=== PATIENT | female | born 1945 | race Hispanic/Latino ===

== ENCOUNTER 2017-09-02 11:22 | Inpatient (IN) | payer OTHER ==
[~2017-09-02] VITALS: Ht 152.4 cm; Wt 81.6 kg
[~2017-09-02 11:22] MED LIST: VICODIN5-300 PO
[2017-09-02 12:14] LABS: ABSOLUTE BASOPHIL COUNT 0 /CUMM (0.0-0.2); ABSOLUTE EOSINOPHIL COUNT 0 /CUMM (0.0-0.7); ABSOLUTE GRANULOCYTE CT 11.9 /CUMM (1.4-6.5); ABSOLUTE LYMPH COUNT 0.6 /CUMM (1.2-3.4); ABSOLUTE MONOCYTE COUNT 0.2 /CUMM (0.10-0.60); BASOPHIL % 0.1 % (0.0-2.0); EOSINOPHIL % 0.1 % (0-5); HEMATOCRIT 29.9 % (37-47); MEAN CORPUSCULAR HGB 23.8 PG (27.0-31.0); MEAN CORPUSCULAR HGB CONC 32.2 G/DL (33.0-37.0); MEAN CORPUSCULAR VOLUME 74.1 FL (81.0-99.0); MEAN PLATELET VOLUME 9.2 FL (7.4-10.4); PLATELET COUNT 211 /CUMM (130-400); RED BLOOD CELL CT 4.04 /CUMM (4.20-5.40); WHITE BLOOD CELL COUNT 12.8 /CUMM (4.8-10.8)
[2017-09-02 12:24] LABS: PT 13.3 SEC (9.4-12.5)
[2017-09-02] MEDS ORDERED: LEVOTHYROXINE25 MCG PO (12:48)
[2017-09-02] MEDS ORDERED: OMEPRAZOLE40 M1 PO (12:48)
[2017-09-02] MEDS ORDERED: GLIPIZIDE5 M2 PO (12:48)
[2017-09-02] MEDS ORDERED: HYDROCHLOROTHIA25 M1 PO (12:48)
[2017-09-02] MEDS ORDERED: MONTELUKAST SOD10 M1 PO (12:49)
[2017-09-02] MEDS ORDERED: JANUMET 50-1,01 EACH PO (12:49)
[2017-09-02] MEDS ORDERED: LOSARTAN POTAS100 M1 PO (12:49)
[2017-09-02] MEDS ORDERED: [UNRECOGNIZED DRUG - OTHER] PO (12:50)
[2017-09-02] MEDS ORDERED: GABAPENTIN300 M2 PO (12:50)
[2017-09-02] MEDS ORDERED: MELOXICAM15 M1 PO (12:51)
--- NOTE | 2017-09-02 12:53 | ED GENERAL ADULT ---
History of Present Illness General Chief Complaint: Chest Pain Stated Complaint: CP YESTERDAY LFT SHOULDER PAIN WEAKNESS/ABD Source: patient, family (DAUGHTER) Exam Limitations: language barrier (DAUGHTER TRANSLATES) Vital Signs & Intake/Output Vital Signs & Intake/Output Vital Signs Date Time Temp Pulse Resp B/P B/P Pulse O2 O2 Flow FiO2 Mean Ox Delivery Rate 09/03 1033 100.2 09/03 1032 100.2 09/03 0609 99.3 89 20 103/57 95 Room Air 09/03 0003 98.7 99 18 102/51 95 Room Air 09/02 2154 103.1 09/02 2134 94 09/02 2100 103.2 123 20 152/67 98 Room Air 09/02 1825 98.7 76 18 119/60 98 Room Air 09/02 1820 71 16 117/71 100 Room Air 09/02 1508 99.0 82 20 109/52 96 Room Air 09/02 1233 94 09/02 1228 100.0 102 120/71 ED Intake and Output 09/03 0000 09/02 1200 Intake Total 0 Output Total Balance 0 Intake, Oral 0 Patient 180 lb Weight Weight Estimated Measurement Method Allergies Coded Allergies: NO KNOWN ALLERGIES (01/02/17) Reconcile Medications Beta-Carotene (Lumitene) 30 MG CAPSULE 15 MG PO DAILY SUPPLEMENT (Reported) Gabapentin 300 MG CAPSULE 1 CAP PO TID UNKNOWN (Reported) Glipizide 5 MG TABLET 1 TAB PO DAILY DM (Reported) Hydrochlorothiazide 25 MG TABLET 1 TAB PO DAILY WATER RETENTION (Reported) Levothyroxine Sodium 25 MCG TABLET 1 TAB PO DAILY AC thyroid (Reported) Losartan Potassium 100 MG TABLET 1 TAB PO DAILY HEART (Reported) Meloxicam 15 MG TABLET 1 TAB PO DAILY PAIN (Reported) Montelukast Sodium 10 MG TABLET 1 TAB PO DAILY ALLERGIES (Reported) Omeprazole 40 MG CAPSULE.DR 1 CAP PO DAILY GI (Reported) Sitagliptin Phos/Metformin HCl (Janumet 50-1,000 MG Tablet) 50 MG-1,000 MG TABLET 1 TAB PO BID DIABETES (Reported) Triage Note: PT BIBA FROM HOME FOR LEFT SHOULDER PAIN. PT HAD CHEST PAIN LAST NIGHT, BUT NOT TODAY. ALSO C/O GENERALIZED WEAKNESS. PT WAS IN HER BEDROOM TODAY AND WAS LOWERED TO FLOOR BY DUE TO WEAKNESS. PER FAMILY PT HAD STENT PLACED IN HER LEG A FEW WEEKS AGO "FOR CIRCULATION". SAW VASCULAR DOCTOR YESTERDAY FOR F/U AND EVERYTHING WAS OK. Triage Nurses Notes Reviewed? yes Onset: Abrupt Duration: day(s): (2) Timing: single episode today Injury Environment: home Severity: moderate, severe Severity Numbers: 6 No Modifying Factors: none LMP (ages 10-50): post menopausal : No Patient currently breastfeeds: No HPI: 72-year-old female past medical history of hypertension, hyperlipidemia, diabetes presents for evaluation of fever, chest pain and abdominal pain. Symptoms started yesterday and have been intermittent. The pain is located in the right upper [place] and center of her chST and does not radiate. She also reports pain in her lower abdomen and right flank. This pain started yesterday and has been intermittent coming and going. Currently is very mild. She describes the pain as sharp and rates it as a 3 out of 10. She never had this before. She took Advil earlier today with mild improvement. She denies shortness of breath, coughing, hemoptysis, urinary symptoms, nausea, vomiting, diarrhea. No recent surgery recent trauma. No history of blood clots. She does not smoke. (Cain Purcell) Past History Travel History Traveled to [place] past 21 day No Medical History Any Pertinent Medical History? see below for history Cardiovascular: hypertension, hyperlipidemia Respiratory: asthma Gastrointestinal: GERD Endocrine: diabetes, hypothyroidism Surgical History Surgical History: non-contributory Psychosocial History What is your primary language Pashto Tobacco Use: Never used ETOH Use: denies use Illicit Drug Use: denies illicit drug use Family History Hx Contributory? No (Cain Purcell) Review of Systems Review of Systems Constitutional: Reports: fever. EENTM: Reports: no symptoms. Respiratory: Reports: no symptoms. Cardiovascular: Reports: see HPI, chest pain. GI: Reports: abdominal pain. Genitourinary: Reports: no symptoms. Musculoskeletal: Reports: see HPI, back pain. Skin: Reports: no symptoms. Neurological/Psychological: Reports: no symptoms. Hematologic/Endocrine: Reports: no symptoms. Immunologic/Allergic: Reports: no symptoms. All Other Systems: Reviewed and Negative (Cain Purcell) Physical Exam Physical Exam General Appearance: well developed/nourished, no apparent distress, alert, awake Head: atraumatic, normal appearance Eyes: Bilateral: normal appearance, PERRL, EOMI. Ears, Nose, Throat: normal pharynx, normal ENT inspection, hearing grossly normal Neck: normal inspection, supple, full range of motion Respiratory: normal breath sounds, chest non-tender, no respiratory distress, lungs clear Cardiovascular: regular rate/rhythm, normal peripheral pulses Peripheral Pulses: 2+ radial (R), 2+ radial (L) Gastrointestinal: normal bowel sounds, soft, no organomegaly, tenderness ( SUPRAPUBIC, RUQ) Back: normal inspection, normal range of motion, CVA tenderness (R) Extremities: normal inspection, normal range of motion, no edema Neurologic/Psych: no motor/sensory deficits, awake, alert, oriented x 3 Skin: intact, normal color, warm/dry Lymphatic: no anterior cervical christa Core Measures ACS in differential dx? No CVA/TIA Diagnosis: No Sepsis Present: No Sepsis Focused Exam Completed? No (Dennis HODGSON,Cain) Progress Differential Diagnoses I considered the following diagnoses in my evaluation of the patient: [Acute coronary syndrome, pneumonia, influenza, UTI, sepsis, kidney stone, aortic dissection, MSK PAIN ] Plan of Care: Orders Procedure Date/time Status Regular Diet 09/03 B Active Vital Signs 09/03 0750 Active Teach/Educate 09/03 0750 Active Pain Treatment and Response 09/03 0750 Active Nutritional Intake, Monitor 09/03 0750 Active Isolation 09/03 0750 Active Intake & Output 09/03 0750 Active Patient Care Conference 09/03 0750 Active Activity/Ambulation 09/03 0750 Active CBC WITHOUT DIFFERENTIAL 09/03 0600 Complete BASIC ELECTROLYTES PLUS BUN&CR 09/03 0600 Complete Lab Add-on Test 09/03 UNK Active PHARMACY COMMUNICATION FORM 09/03 UNK Active TROPONIN LEVEL 09/02 2200 Complete EKG 09/02 2200 Active SERUM OSMOLALITY 09/02 1846 Active Pathway - chart 09/02 1816 Active Pathway - chart 09/02 1814 Active House Staff 09/02 1814 Active Patient Data 09/02 1814 Active Code Status 09/02 1814 Active Patient Data 09/02 1616 Active ED Holding Orders 09/02 1613 Active Admit to inpatient 09/02 1613 Active Vital Signs 09/02 1613 Active Code Status 09/02 1613 Complete TOTAL IRON BINDING CAPACITY 09/02 1600 Complete FOLIC ACID 09/02 1600 Complete FERRITIN 09/02 1600 Complete SERUM IRON 09/02 1600 Complete VITAMIN B12 09/02 1600 Complete BLOOD CULTURE 09/02 1537 Active TROPONIN LEVEL 09/02 1537 Complete EKG 09/02 1537 Active Add-on Test (ER Only) 09/02 1534 Active CULTURE,URINE 09/02 1508 Active URINE OSMOLALITY 09/02 1508 Active URINE LYTES, SPOT 09/02 1508 Active URINALYSIS 09/02 1500 Complete Add-on Test (ER Only) 09/02 1257 Active Intake & Output 09/02 1231 Active RAPID VIRAL INFLUENZA A 09/02 1204 Complete LACTIC ACID 09/02 1203 Complete TRC EVALUATION (GEN) 09/02 UNK Active OXYGEN SETUP (GEN) 09/02 UNK Active Lab Add-on Test 09/02 UNK Active VTE Mechanical Prophylaxis 09/02 UNK Active Vital Signs 09/02 UNK Active Telemetry/Dovetail Machine Operator 09/02 UNK Active FingerStick- Glucose 09/02 UNK Active Current Medications Sig/[place] Start time Last Medication Dose Stop Time Status Admin Ceftriaxone Sodium 1,000 MG 1600 09/03 1600 AC (Rocephin) Insulin Aspart 0 TIDAC 09/03 0800 AC 09/03 (NovoLOG) 0821 Heparin Sodium 5,000 UNIT Q8 09/02 2200 AC 09/03 (Porcine) 0622 Albuterol Sulfate 3 ML Q6 PRN 09/02 1900 AC 09/02 (Proventil) 2135 Tiotropium [place] 1 PUF DAILY 09/02 185 AC 09/03 (Spiriva) 1032 Montelukast Sodium 10 MG DAILY 09/02 184 AC 09/03 (Singulair) 1032 Omeprazole 40 MG DAILY AC 09/02 184 AC 09/03 (Prilosec) 0821 Gabapentin 300 MG TID 09/02 184 AC 09/03 (Neurontin) 1032 Levothyroxine Sodium 0.025 MG DAILY AC 09/02 184 AC 09/03 (Synthroid) 0821 Acetaminophen 650 MG Q6P PRN 09/02 183 AC 09/03 (Tylenol) 1032 Acetaminophen 1,000 MG Q6P PRN 09/02 1830 AC 09/02 (Ofirmev) 2100 Laboratory Tests 09/03/17 0607: Anion Gap 9, Estimated GFR 34 L, BUN/Creatinine Ratio 14.7, CBC w Diff NO MAN DIFF REQ, RBC 3.84 L, MCV 74.2 L, MCH 23.8 L, MCHC 32.1 L, RDW 17.5 H, MPV 9.4, Gran % 90.1 H, Lymphocytes % 5.2 L, Monocytes % 4.6, Eosinophils % 0, Basophils % 0.1, Absolute Granulocytes 15.8 H, Absolute Lymphocytes 0.9 L, Absolute Monocytes 0.8 H, Absolute Eosinophils 0, Absolute Basophils 0 09/02/17 2204: Troponin I 0.04 09/02/17 1846: Urine Osmolality Cancelled, Ur Random Creatinine Cancelled, Ur Random Sodium Cancelled, Ur Random Potassium Cancelled, Fraction Sodium Excret Cancelled 09/02/17 1600: Iron < 10 L, TIBC 318, Ferritin 23.4, Troponin I 0.03, Vitamin B12 210 L, Folate 14.6 09/02/17 1508: Urine Color YEL, Urine Clarity CLEAR, Urine pH 6.0, Ur Specific [place] 1.010, Urine Protein 30 H, Urine Ketones NEG, Urine Nitrite NEG, Urine Bilirubin NEG, Urine Urobilinogen 0.2, Ur Leukocyte Esterase MOD H, Ur Microscopic SEDIMENT EXAMINED, Urine RBC RARE, Urine WBC 15-25 H, Ur Epithelial Cells MOD H, Urine Bacteria MANY H, Urine Hemoglobin TRACE-INTACT, Urine Glucose NEG 09/02/17 1508: Urine Osmolality Pending, Ur Random Creatinine 177.5, Ur Random Sodium 8 L, Ur Random Potassium 60.1, Fraction Sodium Excret 0.0 09/02/17 1203: Lactic Acid 1.7 09/02/17 1203: Anion Gap 12, Estimated GFR 44 L, BUN/Creatinine Ratio 15.8, Glucose 140 H, Calcium 9.0, Total Bilirubin 0.6, AST 28, ALT 34, Alkaline Phosphatase 96, Troponin I 0.03, Total Protein 6.4, Albumin 3.8, Globulin 2.6, Albumin/Globulin Ratio 1.5, Lipase 59, PT 13.3 H, INR 1.27 H, CBC w Diff MAN DIFF ORDERED, RBC 4.04 L, MCV 74.1 L, MCH 23.8 L, MCHC 32.2 L, RDW 17.0 H, MPV 9.2, Gran % 93.0 H, Lymphocytes % 4.9 L, Monocytes % 1.9, Eosinophils % 0.1, Basophils % 0.1, Absolute Granulocytes 11.9 H, Segmented Neutrophils 76 H, Band Neutrophils 12 H, Absolute Lymphocytes 0.6 L, Lymphocytes 8 L, Monocytes 2, Absolute Monocytes 0.2, Eosinophils 1, Absolute Eosinophils 0, Basophils 1, Absolute Basophils 0, Platelet Estimate ADEQUATE, Polychromasia 1+, Hypochromic- Microcytic 2+, Poikilocytosis 1+, Basophilic Stippling RARE, Anisocytosis 1+, Microcytic Cells 1+, Elliptocytes RARE, Schistocytes RARE, Fld Total RBCs Counted 100 Microbiology 09/02 1600 BLOOD: Blood Culture - RES GRAM NEGATIVE RODS 09/02 1550 BLOOD: Blood Culture - RES GRAM NEGATIVE RODS 09/02 1508 URINE ROUT: Urine Culture - RES GRAM NEGATIVE RODS 09/02 1207 NASOPHARYN: Influenza Virus A & B Rapid Smear - COMP Patient seen and evaluated. She currently is febrile to 100. She is reporting pain in her back chest abdomen. Flu is negative. Patient has a white count of 13,000. She also is anemic to 9.6. There is no labs and the chart for the past several years however in 2012 her hemoglobin was normal. She denies any melena or bright red blood per rectum vaginal bleeding. CT scan of the chest and pelvis shows evidence of pyelonephritis. Urine is showing signs of infection. Culture sent. Patient will be started on ceftriaxone. She was also medicated with fluids IV Tylenol. Additionally patient is having chest pain. She feels like it is significantly improved and is very mild currently. Patient will be admitted to telemetry for serial K cheese, troponin, serial labs, cardiology consult, IV antibiotics, IV fluids, follow-up cultures, physical therapy. Case discussed with Dr. Raymundo she agrees. Diagnostic Imaging: Viewed by Me: CT Scan. Discussed w/RAD: CT Scan. Radiology Impression: PATIENT: ALINA MARCH PRESENT AGE: 72 PATIENT ACCOUNT NO: [id number] : 43 LOCATION: [facility] ORDERING PHYSICIAN: Cain HODGSON SERVICE DATE: 09/02/17 EXAM TYPE: CAT - CT ABD & PELVIS W/O IV CONTRAS; CT CHEST WO IV CONTRAST EXAMINATION: CT CHEST WITHOUT CONTRAST CT ABDOMEN AND PELVIS WITHOUT CONTRAST CLINICAL INFORMATION: Chest pain. Cough. Abdominal pain. COMPARISON: CT abdomen 11/28/2014. Chest x-ray of 10/25/2008. Abdominal ultrasound of 05/17/2014. TECHNIQUE: Multidetector volumetric CT imaging of the chest, abdomen and pelvis is acquired without intravenous or oral contrast administration. Sagittal and coronal reformatted images were obtained on the technologist's workstation. DLP: 898.14 mGy-cm FINDINGS: CHEST: Lungs: There is no evidence of airspace and ground-glass opacities suggestive of infectious or inflammatory process. A 4 mm calcified granuloma is noted at the left lung base (series 5 image 308). A punctate dense nodule is noted in the left upper lobe posteriorly along the major fissure ( series 5 image 186) most likely representing a tiny calcified granuloma as well. Minimal dependent changes are noted at the lung bases. Lower Neck And Mediastinum: The thyroid gland is unremarkable with mild asymmetry of the size of the thyroid lobes, right larger than left. No evidence of mediastinal or hilar adenopathy. Subcentimeter scattered mediastinal lymph nodes are noted. Cardiac size is normal. Trace pericardial fluid versus pericardial thickening. Trachea and central bronchi are well patent. The aorta and central pulmonary arteries are normal in caliber. There is calcific atherosclerosis of the aorta. Calcified left hilar lymph nodes are seen. Pleura: No evidence of pleural effusion, mass, thickening or pneumothorax. Axillae: No adenopathy. Chest wall soft tissues: Unremarkable. ABDOMEN AND PELVIS: Liver, Gallbladder, And Biliary Tree: The liver is normal in size, shape, and attenuation. No focal hepatic lesion or biliary ductal dilatation is present. The gallbladder is unremarkable with no evidence of radiopaque gallstones, gallbladder wall thickening, or obvious pericholecystic inflammatory changes. Pancreas: Unremarkable. Spleen: Unremarkable. Adrenal Glands: Unremarkable. Kidneys And Ureters: The kidneys are normal in size, shape, and attenuation. No hydroureteronephrosis. A stable punctate nonobstructing calcification is noted in the mid to lower right kidney. No additional radiopaque urinary tract calculi are seen. There is mild bilateral perinephric stranding which is a new finding compared to previous CT and is nonspecific. Bladder: Underdistended and therefore not optimally evaluated. No evidence of radiopaque bladder calculi. Gastrointestinal Tract: The small and large bowel are unremarkable. The appendix is unremarkable. Abdominal Wall: No significant hernia is appreciated. Lymph Nodes: No pathologically enlarged lymph nodes. Vascular: The aortoiliac vessels are normal in caliber. Mild calcific atherosclerosis of the aortoiliac vessels. A stent is noted in the right common iliac vein. Pelvic Viscera: The uterus is not seen, likely surgically absent. No adnexal mass. Osseous Structures: There is no evidence of acute or suspicious osseous abnormality in the chest, abdomen and pelvis. There is minimal anterior subluxation of L4 over L5. Mild anterior wedge compression of T11 is a stable finding. Mild chronic-appearing anterior wedge compression at T6 and T7 with sclerotic endplate marrow changes are noted. IMPRESSION: 1. No evidence of pneumonia. 2. Calcified lung nodules and calcified left hilar lymph node suggests prior granulomatous disease exposure. 3. No evidence of radiopaque gallstones. No CT evidence of acute cholecystitis. 4. Normal appendix. 5. Stable punctate nonobstructing right renal calcification. Mild bilateral perinephric stranding is nonspecific however new compared to previous CT and findings can be seen in the setting of pyelonephritis. No hydroureteronephrosis. DICTATED BY: Collin Gonzales MD DATE/TIME DICTATED:09/02/171403 WILLOW MACHINE TENDER:LAWSON DATE/TIME TRANSCRIBED:09/02/171403 Initial ED EKG: normal sinus rhythm, LEFT ANTERIOR FASCICULAR BLOCK, CONSIDER LEFT VENTRICULAR HYPERTROPHY (Cain Purcell) Comments: House staff has been notified of blood culture results. (Chris ELLIS,Phillip Martinez) Departure Departure Disposition: STILL A PATIENT Condition: Stable Clinical Impression Primary Impression: Pyelonephritis Secondary Impressions: Chest pain Qualifiers: Chest pain type: unspecified Qualified Code: R07.9 - Chest pain, unspecified Leukocytosis Qualifiers: Leukocytosis type: bandemia Qualified Code: D72.825 - Bandemia Referrals: Jake Mendez MD (PCP/Family) Departure Forms: Customer Survey General Discharge Information Admission Note Spoke With: Jake Mendez MD Documentation of Exam: Documentation of any treatments & extenuating circumstances including Concerns Regarding Discharge (functional status, medication knowledge or non-compliance, living conditions, etc.) that warrant an admission rather than observation: [IV fluids, IV antibiotics, antipyretics, cardiology consult, serial labs, serial EKGs, cardiology consult] (Cain Purcell) PA/SQL DEVELOPER DBA Co-Sign Statement Statement: ED Attending supervision documentation- [X] I saw and evaluated the patient. I have also reviewed all the pertinent lab results and diagnostic results. I agree with the findings and the plan of care as documented in the PA's/SQL DEVELOPER DBA's documentation. [X] I have reviewed the ED Record and agree with the PA's/SQL DEVELOPER DBA's documentation. [] Additions or exceptions (if any) to the PAs/SQL DEVELOPER DBA's note and plan are summarized below: [] (Breanne ELLIS,oRbyn) Critical Care Note Critical Care Note Critical Care Time: non-applicable (Dennis HODGSON,Cain)
--- NOTE | 2017-09-02 14:40 | CT SCAN REPORT ---
EXAMINATION: CT CHEST WITHOUT CONTRAST CT ABDOMEN AND PELVIS WITHOUT CONTRAST CLINICAL INFORMATION: Chest pain. Cough. Abdominal pain. COMPARISON: CT abdomen 11/28/2014. Chest x-ray of 10/25/2008. Abdominal ultrasound of 05/17/2014. TECHNIQUE: Multidetector volumetric CT imaging of the chest, abdomen and pelvis is acquired without intravenous or oral contrast administration. Sagittal and coronal reformatted images were obtained on the technologist's workstation. DLP: 898.14 mGy-cm FINDINGS: CHEST: Lungs: There is no evidence of airspace and ground-glass opacities suggestive of infectious or inflammatory process. A 4 mm calcified granuloma is noted at the left lung base (series 5 image 308). A punctate dense nodule is noted in the left upper lobe posteriorly along the major fissure (series 5 image 186) most likely representing a tiny calcified granuloma as well. Minimal dependent changes are noted at the lung bases. Lower Neck And Mediastinum: The thyroid gland is unremarkable with mild asymmetry of the size of the thyroid lobes, right larger than left. No evidence of mediastinal or hilar adenopathy. Subcentimeter scattered mediastinal lymph nodes are noted. Cardiac size is normal. Trace pericardial fluid versus pericardial thickening. Trachea and central bronchi are well patent. The aorta and central pulmonary arteries are normal in caliber. There is calcific atherosclerosis of the aorta. Calcified left hilar lymph nodes are seen. Pleura: No evidence of pleural effusion, mass, thickening or pneumothorax. Axillae: No adenopathy. Chest wall soft tissues: Unremarkable. ABDOMEN AND PELVIS: Liver, Gallbladder, And Biliary Tree: The liver is normal in size, shape, and attenuation. No focal hepatic lesion or biliary ductal dilatation is present. The gallbladder is unremarkable with no evidence of radiopaque gallstones, gallbladder wall thickening, or obvious pericholecystic inflammatory changes. Pancreas: Unremarkable. Spleen: Unremarkable. Adrenal Glands: Unremarkable. Kidneys And Ureters: The kidneys are normal in size, shape, and attenuation. No hydroureteronephrosis. A stable punctate nonobstructing calcification is noted in the mid to lower right kidney. No additional radiopaque urinary tract calculi are seen. There is mild bilateral perinephric stranding which is a new finding compared to previous CT and is nonspecific. Bladder: Underdistended and therefore not optimally evaluated. No evidence of radiopaque bladder calculi. Gastrointestinal Tract: The small and large bowel are unremarkable. The appendix is unremarkable. Abdominal Wall: No significant hernia is appreciated. Lymph Nodes: No pathologically enlarged lymph nodes. Vascular: The aortoiliac vessels are normal in caliber. Mild calcific atherosclerosis of the aortoiliac vessels. A stent is noted in the right common iliac vein. Pelvic Viscera: The uterus is not seen, likely surgically absent. No adnexal mass. Osseous Structures: There is no evidence of acute or suspicious osseous abnormality in the chest, abdomen and pelvis. There is minimal anterior subluxation of L4 over L5. Mild anterior wedge compression of T11 is a stable finding. Mild chronic-appearing anterior wedge compression at T6 and T7 with sclerotic endplate marrow changes are noted. IMPRESSION: 1. No evidence of pneumonia. 2. Calcified lung nodules and calcified left hilar lymph node suggests prior granulomatous disease exposure. 3. No evidence of radiopaque gallstones. No CT evidence of acute cholecystitis. 4. Normal appendix. 5. Stable punctate nonobstructing right renal calcification. Mild bilateral perinephric stranding is nonspecific however new compared to previous CT and findings can be seen in the setting of pyelonephritis. No hydroureteronephrosis.
--- NOTE | 2017-09-02 17:23 | History & Physical ---
See Addendum Kandice Warner 09/02/17 1723: General Information and HPI History of Present Illness: Ms Cavazos is a 72 yo f with a past medical history significant for hypertension, hyperlipidemia, diabetes mellitus, hypothyroidism, GERD, recent stent placement right lower extremity who presents with fever, chills, weakness for 1 day. Patient reports today she felt L shoulder pain today but reports CP without radiation last night. Her PCP was informed and she had an appt today at 3 pm but family decided to bring her to ED. She denies shortness of breath, coughing, hemoptysis, urinary symptoms, nausea, vomiting, diarrhea. No recent surgery recent trauma. Allergies/Medications Allergies: Coded Allergies: NO KNOWN ALLERGIES (01/02/17) Home Med list Beta-Carotene (Lumitene) 30 MG CAPSULE 15 MG PO DAILY SUPPLEMENT (Reported) Gabapentin 300 MG CAPSULE 1 CAP PO TID UNKNOWN (Reported) Glipizide 5 MG TABLET 1 TAB PO DAILY DM (Reported) Hydrochlorothiazide 25 MG TABLET 1 TAB PO DAILY WATER RETENTION (Reported) Levothyroxine Sodium 25 MCG TABLET 1 TAB PO DAILY AC thyroid (Reported) Losartan Potassium 100 MG TABLET 1 TAB PO DAILY HEART (Reported) Meloxicam 15 MG TABLET 1 TAB PO DAILY PAIN (Reported) Montelukast Sodium 10 MG TABLET 1 TAB PO DAILY ALLERGIES (Reported) Omeprazole 40 MG CAPSULE.DR 1 CAP PO DAILY GI (Reported) Sitagliptin Phos/Metformin HCl (Janumet 50-1,000 MG Tablet) 50 MG-1,000 MG TABLET 1 TAB PO BID DIABETES (Reported) Past History Travel History Traveled to [place] past 21 day No Medical History Cardiovascular: hypertension, hyperlipidemia Respiratory: asthma Gastrointestinal: GERD Endocrine: diabetes, hypothyroidism Surgical History Surgical History: non-contributory Past Family/Social History Psychosocial History ETOH Use: denies use Illicit Drug Use: denies illicit drug use Review of Systems Review of Systems Constitutional: Reports: see HPI. Exam & Diagnostic Data Last 24 Hrs of Vital Signs/I&O Vital Signs Date Time Temp Pulse Resp B/P B/P Pulse O2 O2 Flow FiO2 Mean Ox Delivery Rate 09/02 2134 94 09/02 2100 103.2 123 20 152/67 98 Room Air 09/02 1825 98.7 76 18 119/60 98 Room Air 09/02 1820 71 16 117/71 100 Room Air 09/02 1508 99.0 82 20 109/52 96 Room Air 09/02 1233 94 09/02 1228 100.0 102 120/71 09/02 1136 99.1 99 20 113/71 94 Room Air Intake & Output 09/02 1600 09/02 0800 09/02 0000 Intake Total 0 Output Total Balance 0 Intake, Oral 0 Patient 180 lb Weight Weight Estimated Measurement Method Physical Exam General Appearance Alert, Oriented X3, Cooperative HEENT Atraumatic, PERRLA, EOMI Neck Supple, No JVD, No thryomegaly Lymphatic Cervical nl Cardiovascular Regular Rate, Normal S1, Normal S2 Lungs Clear to Auscultation, Normal Air Movement Abdomen RLL rebound tenderness, CVA tenderness Neurological Strength at 5/5 X4 Ext, Normal Tone, Sensation Intact, Cranial Nerves 3-12 NL Extremities No Edema Last 24 Hrs of Labs/Khalif: Laboratory Tests 09/02/17 1600: Iron < 10 L, TIBC 318, Ferritin 23.4, Troponin I 0.03, Vitamin B12 210 L, Folate 14.6 09/02/17 1508: Urine Color YEL, Urine Clarity CLEAR, Urine pH 6.0, Ur Specific [place] 1.010, Urine Protein 30 H, Urine Ketones NEG, Urine Nitrite NEG, Urine Bilirubin NEG, Urine Urobilinogen 0.2, Ur Leukocyte Esterase MOD H, Ur Microscopic SEDIMENT EXAMINED, Urine RBC RARE, Urine WBC 15-25 H, Ur Epithelial Cells MOD H, Urine Bacteria MANY H, Urine Hemoglobin TRACE-INTACT, Urine Glucose NEG 09/02/17 1203: Lactic Acid 1.7 09/02/17 1203: Anion Gap 12, Estimated GFR 44 L, BUN/Creatinine Ratio 15.8, Glucose 140 H, Calcium 9.0, Total Bilirubin 0.6, AST 28, ALT 34, Alkaline Phosphatase 96, Troponin I 0.03, Total Protein 6.4, Albumin 3.8, Globulin 2.6, Albumin/Globulin Ratio 1.5, Lipase 59, PT 13.3 H, INR 1.27 H, CBC w Diff MAN DIFF ORDERED, RBC 4.04 L, MCV 74.1 L, MCH 23.8 L, MCHC 32.2 L, RDW 17.0 H, MPV 9.2, Gran % 93.0 H, Lymphocytes % 4.9 L, Monocytes % 1.9, Eosinophils % 0.1, Basophils % 0.1, Absolute Granulocytes 11.9 H, Segmented Neutrophils 76 H, Band Neutrophils 12 H, Absolute Lymphocytes 0.6 L, Lymphocytes 8 L, Monocytes 2, Absolute Monocytes 0.2, Eosinophils 1, Absolute Eosinophils 0, Basophils 1, Absolute Basophils 0, Platelet Estimate ADEQUATE, Polychromasia 1+, Hypochromic- Microcytic 2+, Poikilocytosis 1+, Basophilic Stippling RARE, Anisocytosis 1+, Microcytic Cells 1+, Elliptocytes RARE, Schistocytes RARE, Fld Total RBCs Counted 100 Microbiology 09/02 1600 BLOOD: Blood Culture - RECD 09/02 1550 BLOOD: Blood Culture - RECD 09/02 1508 URINE ROUT: Urine Culture - RECD 09/02 1207 NASOPHARYN: Influenza Virus A & B Rapid Smear - COMP Assessment/Plan Assessment: Ms Cavazos is a 72 yo f with a past medical history significant for hypertension, hyperlipidemia, diabetes mellitus, hypothyroidism, GERD, recent stent placement right lower extremity admitted with CP UTI vs Acute Pyelonephritis * Admit to telemetry * Serial TROP/ECGT to r/o ACS * IV Ceftriaxone * Urology recommendations appreciated Acute kidney injury Patient was found to have creatinine 1.20 the time of admission. Most likely from dehydration and pyelonephritis. * Continue gentle hydration * repeat BEP in the a.m. to monitor renal function * Hold hydrochlorothiazide and losartan for DUSTIN Hyponatremia Sodium 129 at the time of admission most likely hypovolemic hyponatremia. * Follow-up urine osmolality, serum osmolality * Monitor sodium Hx of Diabetes * Novolog SS * Accuchecks Full code regular diet DVT prophylaxis subcutaneous heparin As Ranked By This Provider Problem List: 1. Leukocytosis Qualifiers Leukocytosis type: bandemia Qualified Code: D72.825 - Bandemia Core Measures/Misc (04/05) Acute Coronary Syndrome ACS Diagnosis: No Congestive Heart Failure Congestive Heart Failure Diagnosis No Cerebrovascular Accident CVA/TIA Diagnosis: No VTE (View Protocol) VTE Risk Factors Age>40 No Mechanical VTE Prophylaxis d/t N/A MechProphylax Ordered No VTE Pharm Prophylaxis d/t NA PharmProphylax ordered Sepsis (View protocol) Sepsis Present: No Pancho Echeverria 09/02/17 1914: Resident Review Statement Resident Statement: examined this patient, discussed with commander internal affairs, agreed with commander internal affairs, discussed with family, reviewed EMR data (avail), discussed with nursing , discussed with case mgmt, reviewed images, amended to note Other Findings: This is a 72-year-old female with past medical history significant for hypertension, hyperlipidemia, diabetes mellitus, hypothyroidism, GERD, recent stent placement right lower extremity 4 weeks back presented to the emergency room for evaluation of chest pain, left shoulder pain, right-sided abdomen pain, fever and chills for 1 day. Patient reports on and off chest pain radiating to left shoulder since last night, 5 out of 10, pressure sensation, radiating to left shoulder, not associated with any nausea, vomiting, diaphoresis, sweating, shortness of breath. Patient also reports fevers and chills since last night associated with right- sided abdominal discomfort. Denied any nausea, vomiting, constipation, diarrhea , frequency, urgency, dysuria. Reports 5 out of 10 right-sided flank pain, denied any radiation. No prior episodes of flank pain. Patient reports generalized weakness and leg weakness, near syncope this morning from weakness. Review of systems was negative except for Above. Denied smoking , drug Abuse, illicit drug abuse. Off note patient underwent stent placement on right lower extremity 4 weeks back , followed up with vascular surgeon Dr. Cardenas yesterday, everything was normal as per family. --------- Vitals MAXIMUM TEMPERATURE 100, tachycardia 102, respiratory rate 20, blood pressure 120/70, saturating at 94 on room air. Pertinent labs leukocytosis 12.8 with bandemia 12, hemoglobin 9.6 and hematocrit 29, MCV 74, platelets 211. Sodium 129, potassium 4, BUN 19 and creatinine 1.2. Lactic acid 1.7 LFTs normal troponin 2 sets were normal urine analysis positive for esterase, WBC, bacteria CT abdomen showed bilateral perinephric stranding suggestive of acute pyelonephritis. EKG showed rate 7, sinus rhythm, left anterior fascicular block, left ventricular hypertrophy, QTC 436, no acute ST-T wave changes. --------- 1. Sepsis and Acute pyelonephritis Patient was found to have right-sided abdominal discomfort for 1 day. She was found to have MAXIMUM TEMPERATURE 100 with tachycardia. She was also found to have elevated WBC count 12.8 with bandemia. She fulfilled SIRS criteria at the time of admission with fever, tachycardia, leukocytosis. Urine analysis showed esterase, WBC, bacteria. CT abdomen showed bilateral perinephric stranding suggestive of pyelonephritis. Patient is septic most possibly from pyelonephritis. However she is hemodynamically stable with normal blood pressure. * Admit to telemetry given her chest pain * Continuous telemetry monitoring * Provide IV fluid hydration * Monitor vitals every shift * Monitor for fever, leukocytosis, * IV antibiotics ceftriaxone 1 g daily * IV Tylenol for fever * Urology consult * Please follow-up blood cultures and urine cultures * Follow-up urology recommendations Acute kidney injury Patient was found to have creatinine 1.20 the time of admission. Most likely from dehydration and pyelonephritis. * Provide gentle hydration * repeat creatinine in the a.m. * Meanwhile please hold hydrochlorothiazide and losartan Hyponatremia Sodium 129 at the time of admission most likely hypovolemic hyponatremia. * Follow-up urine osmolality * Follow-up serum osmolality * Follow-up urine lites * Repeat sodium in a.m. MicroCYtic anemia * Hemoglobin 9.6 and hematocrit 29. MCV 74. * Follow-up iron studies, B12 and folate * Guaiac all the stools Chest pain Patient reports on and off chest pain radiating to left shoulder since last night, 5 out of 10, pressure sensation, radiating to left shoulder, not associated with any nausea, vomiting, diaphoresis, sweating, shortness of breath. * Continuous telemetry monitoring * Serial troponins and EKG * Follow-up troponin and EKG at 10 PM Diabetes mellitus Accu-Cheks and insulin sliding scale Hypertension-please hold home medication hydrochlorothiazide and losartan given DUSTIN Hyperlipidemia continue statin Hypothyroidism continue levothyroxine 25 g daily GERD continue omeprazole 40 daily Neuropathy continue gabapentin 300 3 times daily Constipation bowel regimen as required Full code regular diet DVT prophylaxis subcutaneous heparin Pain pathway ordered
--- NOTE | 2017-09-02 18:51 | Admission Certification ---
Admission Certification Certification Statement - As attending physician, I certify that at the time of - admission, based on clinical presentation, severity of - symptoms, need for further diagnostic testing and - therapeutic interventions, and risk of adverse outcomes - without in-hospital treatment, in my clinical assessment, - this patient requires an acute hospital stay for a minimum - of two nights or longer. I have also considered psychsocial - factors such as support system, advanced age, financial - issues, cognitive issues, and failed out-patient treatments, - past re-admission history, safety of patient, and lack of - compliance as applicable. Specific rationale supporting this admission is: Weakness, abdominal pain a fall during a urine leukocytosis low-grade fever and a CT scan suggestive of pyelonephritis.
--- NOTE | 2017-09-02 18:54 | PN- Att Addend ---
Attending Addendum Attending Brief Note 72-year-old female not been feeling well for the last couple of days and some abdominal pain some other aches, this morning she was so weak, she felt , also has had a low-grade temperature, lower abdominal pain comes to the ER for an evaluation noted to have a dirty urine on a low-grade fever leukocytosis and a CT scan of the abdomen suggestive of pyelonephritis and all cultures will be obtained will be treated with IV antibiotics get a urology consult per family request. Laboratory Tests 09/02 09/02 09/02 1600 1508 1203 Chemistry Lactic Acid (0.7 - 2.1 mmol/L) 1.7 Troponin I (< 0.11 ng/ml) 0.03 Urines Urine Color (YEL,AMB,STR) YEL Urine Clarity (CLEAR) CLEAR Urine pH (5.0 - 8.0) 6.0 Ur Specific [place] (1.001 - 1.035) 1.010 Urine Protein (NEG,<30 MG/DL) 30 H Urine Ketones (NEG) NEG Urine Nitrite (NEG) NEG Urine Bilirubin (NEG) NEG Urine Urobilinogen (0.1 - 1.0 EU/dl) 0.2 Ur Leukocyte Esterase (NEG) MOD H Ur Microscopic SEDIMENT EXAMINED Urine RBC (0 - 5 /HPF) RARE Urine WBC (0 - 2 /HPF) 15-25 H Ur Epithelial Cells (NONE,FEW) MOD H Urine Bacteria (NEG/NONE) MANY H Urine Hemoglobin (NEG) TRACE-INTACT Urine Glucose (N MG/DL) NEG 09/02 1203 Chemistry Sodium (137 - 145 mmol/L) 129 L Potassium (3.5 - 5.1 mmol/L) 4.0 Chloride (98 - 107 mmol/L) 91 L Carbon Dioxide (22 - 30 mmol/L) 26 Anion Gap (5 - 16) 12 BUN (7 - 17 mg/dL) 19 H Creatinine (0.5 - 1.0 mg/dL) 1.2 H Estimated GFR (>60 ml/min) 44 L BUN/Creatinine Ratio (7 - 25 %) 15.8 Glucose (65 - 99 mg/dL) 140 H Calcium (8.4 - 10.2 mg/dL) 9.0 Total Bilirubin (0.2 - 1.3 mg/dL) 0.6 AST (14 - 36 U/L) 28 ALT (9 - 52 U/L) 34 Alkaline Phosphatase (<127 U/L) 96 Troponin I (< 0.11 ng/ml) 0.03 Total Protein (6.3 - 8.2 g/dL) 6.4 Albumin (3.5 - 5.0 g/dL) 3.8 Globulin (1.9 - 4.2 gm/dL) 2.6 Albumin/Globulin Ratio (1.1 - 2.2 %) 1.5 Lipase (23 - 300 U/L) 59 Coagulation PT (9.4 - 12.5 SEC) 13.3 H INR (0.90 - 1.19) 1.27 H Hematology CBC w Diff MAN DIFF ORDERED WBC (4.8 - 10.8 /CUMM) 12.8 H RBC (4.20 - 5.40 /CUMM) 4.04 L Hgb (12.0 - 16.0 G/DL) 9.6 L Hct (37 - 47 %) 29.9 L MCV (81.0 - 99.0 FL) 74.1 L MCH (27.0 - 31.0 PG) 23.8 L MCHC (33.0 - 37.0 G/DL) 32.2 L RDW (11.5 - 14.5 %) 17.0 H Plt Count (130 - 400 /CUMM) 211 MPV (7.4 - 10.4 FL) 9.2 Gran % (42.2 - 75.2 %) 93.0 H Lymphocytes % (20.5 - 51.1 %) 4.9 L Monocytes % (1.7 - 9.3 %) 1.9 Eosinophils % (0 - 5 %) 0.1 Basophils % (0.0 - 2.0 %) 0.1 Absolute Granulocytes (1.4 - 6.5 /CUMM) 11.9 H Segmented Neutrophils (42.2 - 75.2 %) 76 H Band Neutrophils (0.0 - 5.0 %) 12 H Absolute Lymphocytes (1.2 - 3.4 /CUMM) 0.6 L Lymphocytes (20.5 - 51.1 %) 8 L Monocytes (1.7 - 9.3 %) 2 Absolute Monocytes (0.10 - 0.60 /CUMM) 0.2 Eosinophils (0 - 5.0 %) 1 Absolute Eosinophils (0.0 - 0.7 /CUMM) 0 Basophils (0.0 - 2.0 %) 1 Absolute Basophils (0.0 - 0.2 /CUMM) 0 Platelet Estimate (ADEQUATE) ADEQUATE Polychromasia 1+ Hypochromic-Microcytic 2+ Poikilocytosis 1+ Basophilic Stippling RARE Anisocytosis 1+ Microcytic Cells 1+ Elliptocytes RARE Schistocytes RARE Other Body Source Fld Total RBCs Counted (%) 100
[2017-09-03 06:21] LABS: ABSOLUTE BASOPHIL COUNT 0 /CUMM (0.0-0.2); ABSOLUTE EOSINOPHIL COUNT 0 /CUMM (0.0-0.7); ABSOLUTE GRANULOCYTE CT 15.8 /CUMM (1.4-6.5); ABSOLUTE LYMPH COUNT 0.9 /CUMM (1.2-3.4); ABSOLUTE MONOCYTE COUNT 0.8 /CUMM (0.10-0.60); BASOPHIL % 0.1 % (0.0-2.0); EOSINOPHIL % 0 % (0-5); HEMATOCRIT 28.5 % (37-47); MEAN CORPUSCULAR HGB 23.8 PG (27.0-31.0); MEAN CORPUSCULAR HGB CONC 32.1 G/DL (33.0-37.0); MEAN CORPUSCULAR VOLUME 74.2 FL (81.0-99.0); MEAN PLATELET VOLUME 9.4 FL (7.4-10.4); RBC DISTRIBUTION WIDTH 17.5 % (11.5-14.5); RED BLOOD CELL CT 3.84 /CUMM (4.20-5.40); WHITE BLOOD CELL COUNT 17.5 /CUMM (4.8-10.8)
[2017-09-03 06:39] LABS: GRANULOCYTE % 90.1 % (42.2-75.2); PLATELET COUNT 200 /CUMM (130-400)
--- NOTE | 2017-09-03 10:24 | PN- Housestaff ---
Subjective Follow-up For: Acute pyelonephritis Subjective: Patient sitting in chair eating breakfast with at bedside offers no complaints. Overnight she had a fever of Tmax 103.2 and was given tylenol. Review of Systems Constitutional: Reports: see HPI. Objective Last 24 Hrs of Vital Signs/I&O Vital Signs Date Time Temp Pulse Resp B/P B/P Pulse O2 O2 Flow FiO2 Mean Ox Delivery Rate 09/04 0000 Room Air 09/03 2254 99.4 89 16 154/82 97 Room Air 09/03 2247 100.1 09/03 2123 100.1 09/03 2027 102.6 09/03 2000 102.6 09/03 1800 99.0 09/03 1609 Room Air 09/03 1510 99.5 76 18 142/64 96 Room Air 09/03 1456 98.4 76 20 126/70 96 Room Air 09/03 1455 98.4 76 20 126/70 96 Room Air 09/03 1220 98.9 76 22 122/60 95 Room Air 09/03 1216 98.9 76 22 122/60 95 Room Air 09/03 1131 98.9 09/03 1033 100.2 09/03 1032 100.2 09/03 0609 99.3 89 20 103/57 95 Room Air Intake & Output 09/04 0800 09/04 0000 09/03 1600 Intake Total 1450 660 Output Total Balance 1450 660 Intake, IV 300 Intake, Oral 1450 360 Number 1 1 Bowel Movements Patient 180 lb Weight Weight Reported by Patient Measurement Method Physical Exam General Appearance: Alert, Oriented X3, Cooperative Cardiovascular: Regular Rate, Normal S1, Normal S2 Lungs: Clear to Auscultation, Normal Air Movement Abdomen: L flank pain Extremities: No Edema Current Medications: Current Medications Sig/[place] Start time Last Medication Dose Route Stop Time Status Admin Acetaminophen 650 MG .STK-MED ONE 09/03 181 DC PO 09/03 181 Acetaminophen 0 .STK-MED ONE 09/03 1034 DC PO Acetaminophen 650 MG Q6P PRN 09/02 1830 AC 09/03 PO 181 Acetaminophen 1,000 MG Q6P PRN 09/02 183 AC 09/03 IV 2027 Albuterol Sulfate 3 ML Q6 PRN 09/02 1900 AC 09/02 INH 2135 Bismuth Subsalicylate 30 ML ONCE ONE 09/03 1814 DC 09/03 PO 09/03 1816 1924 Ceftriaxone Sodium 1,000 MG 1600 09/04 1600 DC IV Ceftriaxone Sodium 1,000 MG 1600 09/03 1730 AC 09/03 IV 1809 Ceftriaxone Sodium 1,000 MG 1600 09/03 1600 DC IV Ceftriaxone Sodium 2,000 MG 1600 09/03 1600 DC IV Ceftriaxone Sodium 1,000 MG DAILY 09/03 1000 DC IV Gabapentin 300 MG TID 09/02 1848 AC 09/03 PO 2255 Heparin Sodium 0 .STK-MED ONE 09/03 1457 DC (Porcine) .ROUTE Heparin Sodium 0 .STK-MED ONE 09/03 0616 DC (Porcine) .ROUTE Heparin Sodium 5,000 UNIT Q8 09/02 2200 AC 09/03 (Porcine) SC 2255 Insulin Aspart 0 TIDAC 09/03 0800 AC 09/03 SC 0821 Levothyroxine Sodium 0.025 MG DAILY AC 09/02 1848 AC 09/03 PO 0821 Montelukast Sodium 10 MG DAILY 09/02 1849 AC 09/03 PO 1032 Omeprazole 40 MG DAILY AC 09/02 1849 AC 09/03 PO 0821 Sodium Chloride 1,000 ML Q13H 09/02 1815 DC 09/02 IV 09/03 0714 1820 Tiotropium [place] 1 PUF DAILY 09/02 1851 AC 09/03 INH 1032 Last 24 Hrs of Lab/Khalif Results Last 24 Hrs of Labs/Mics: Laboratory Tests 09/03/17 2100: Lactic Acid 1.4 09/03/17 1450: Lactic Acid 1.4 09/03/17 0607: Anion Gap 9, Estimated GFR 34 L, BUN/Creatinine Ratio 14.7, CBC w Diff NO MAN DIFF REQ, RBC 3.84 L, MCV 74.2 L, MCH 23.8 L, MCHC 32.1 L, RDW 17.5 H, MPV 9.4, Gran % 90.1 H, Lymphocytes % 5.2 L, Monocytes % 4.6, Eosinophils % 0, Basophils % 0.1, Absolute Granulocytes 15.8 H, Absolute Lymphocytes 0.9 L, Absolute Monocytes 0.8 H, Absolute Eosinophils 0, Absolute Basophils 0 Assessment/Plan Assessment: Ms Cavazos is a 72 yo f with a past medical history significant for hypertension, hyperlipidemia, diabetes mellitus, hypothyroidism, GERD, recent stent placement right lower extremity admitted with flank pain, fever, chills Acute Pyelonephritis CT ABD/PEL showed perinephric stranding and patient reported a fever, chills and flank pain most consistent with an acute complicated UTI. * Continue IV Ceftriaxone * Urology recommendations appreciated Acute kidney injury Patient was found to have creatinine 1.20 the time of admission. Most likely from dehydration and pyelonephritis. * Continue gentle hydration * repeat BEP in the a.m. to monitor renal function * Hold hydrochlorothiazide and losartan for DUSTIN Hyponatremia Sodium 129 at the time of admission most likely hypovolemic hyponatremia. * Monitor sodium Hx of Diabetes * Novolog SS * Accuchecks Diet: Diabetic DVT prophylaxis subcutaneous heparin Code: FULL Problem List: 1. Pyelonephritis 2. Leukocytosis Pain Ratin Pain Location: NA Pain Goal: Pain 4 or less Pain Plan: Tylenol Tomorrow's Labs & Rationales: CBC for white count BEP for renal function
--- NOTE | 2017-09-03 11:35 | PN- Att Addend ---
Attending Addendum Attending Brief Note 72-year-old white female admitted with acute pyelonephritis and a fall. Complaining of left posterior flank pain and some discomfort behind the right knee and her temp max was 103.1. Her white count 17,500. The 2 blood cultures are growing gram-negative rads. The urine culture has more than 100,000 colonies of gram-negative rads to follow. Patient will have PT eval urology eval continue IV antibiotics emu gentle hydration get a PT evaluation to check her leg 24 TOTALS 09/03 0000 09/02 0000 Intake Total 0 Output Total Balance 0 Intake, Oral 0 Patient 180 lb Weight Weight Estimated Measurement Method Laboratory Tests 09/03/17 0607: Anion Gap 9, Estimated GFR 34 L, BUN/Creatinine Ratio 14.7, CBC w Diff NO MAN DIFF REQ, RBC 3.84 L, MCV 74.2 L, MCH 23.8 L, MCHC 32.1 L, RDW 17.5 H, MPV 9.4, Gran % 90.1 H, Lymphocytes % 5.2 L, Monocytes % 4.6, Eosinophils % 0, Basophils % 0.1, Absolute Granulocytes 15.8 H, Absolute Lymphocytes 0.9 L, Absolute Monocytes 0.8 H, Absolute Eosinophils 0, Absolute Basophils 0 09/02/17 2204: Troponin I 0.04 09/02/17 1846: Urine Osmolality Cancelled, Ur Random Creatinine Cancelled, Ur Random Sodium Cancelled, Ur Random Potassium Cancelled, Fraction Sodium Excret Cancelled 09/02/17 1600: Iron < 10 L, TIBC 318, Ferritin 23.4, Troponin I 0.03, Vitamin B12 210 L, Folate 14.6 09/02/17 1508: Urine Color YEL, Urine Clarity CLEAR, Urine pH 6.0, Ur Specific [place] 1.010, Urine Protein 30 H, Urine Ketones NEG, Urine Nitrite NEG, Urine Bilirubin NEG, Urine Urobilinogen 0.2, Ur Leukocyte Esterase MOD H, Ur Microscopic SEDIMENT EXAMINED, Urine RBC RARE, Urine WBC 15-25 H, Ur Epithelial Cells MOD H, Urine Bacteria MANY H, Urine Hemoglobin TRACE-INTACT, Urine Glucose NEG 09/02/17 1508: Urine Osmolality Pending, Ur Random Creatinine 177.5, Ur Random Sodium 8 L, Ur Random Potassium 60.1, Fraction Sodium Excret 0.0 09/02/17 1203: Lactic Acid 1.7 09/02/17 1203: Anion Gap 12, Estimated GFR 44 L, BUN/Creatinine Ratio 15.8, Glucose 140 H, Calcium 9.0, Total Bilirubin 0.6, AST 28, ALT 34, Alkaline Phosphatase 96, Troponin I 0.03, Total Protein 6.4, Albumin 3.8, Globulin 2.6, Albumin/Globulin Ratio 1.5, Lipase 59, PT 13.3 H, INR 1.27 H, CBC w Diff MAN DIFF ORDERED, RBC 4.04 L, MCV 74.1 L, MCH 23.8 L, MCHC 32.2 L, RDW 17.0 H, MPV 9.2, Gran % 93.0 H, Lymphocytes % 4.9 L, Monocytes % 1.9, Eosinophils % 0.1, Basophils % 0.1, Absolute Granulocytes 11.9 H, Segmented Neutrophils 76 H, Band Neutrophils 12 H, Absolute Lymphocytes 0.6 L, Lymphocytes 8 L, Monocytes 2, Absolute Monocytes 0.2, Eosinophils 1, Absolute Eosinophils 0, Basophils 1, Absolute Basophils 0, Platelet Estimate ADEQUATE, Polychromasia 1+, Hypochromic- Microcytic 2+, Poikilocytosis 1+, Basophilic Stippling RARE, Anisocytosis 1+, Microcytic Cells 1+, Elliptocytes RARE, Schistocytes RARE, Fld Total RBCs Counted 100 Microbiology 09/02 1207 NASOPHARYN: Influenza Virus A & B Rapid Smear - COMP Microbiology Date/Time Procedure - Status Source Growth 09/02 1600 Blood Culture - RES BLOOD GRAM NEGATIVE RODS 09/02 1550 Blood Culture - RES BLOOD GRAM NEGATIVE RODS 09/02 1508 Urine Culture - RES URINE ROUT GRAM NEGATIVE RODS 09/02 1207 Influenza Virus A & B Rapid Smear - COMP NASOPHARYN Vital Signs Date Time Temp Pulse Resp B/P B/P Pulse O2 O2 Flow FiO2 Mean Ox Delivery Rate 09/03 1033 100.2 09/03 1032 100.2 09/03 0609 99.3 89 20 103/57 95 Room Air 09/03 0003 98.7 99 18 102/51 95 Room Air 09/02 2154 103.1 09/02 2134 94 09/02 2100 103.2 123 20 152/67 98 Room Air 09/02 1825 98.7 76 18 119/60 98 Room Air 09/02 1820 71 16 117/71 100 Room Air 09/02 1508 99.0 82 20 109/52 96 Room Air 09/02 1233 94 09/02 1228 100.0 102 120/71 09/02 1136 99.1 99 20 113/71 94 Room Air
[2017-09-03 12:20] VITALS: BP 122/60
[2017-09-03 14:56] VITALS: BP 126/70
[2017-09-03 15:10] VITALS: BP 142/64
--- NOTE | 2017-09-03 17:27 | Cons- Infect Disease ---
General Information and HPI Consulting Request Date of Consult: 09/03/17 Requested By: Jake Mendez MD Reason for Consult: Positive blood and urine cultures for gram-negative rods Source of Information: patient History of Present Illness: This is a 72-year-old woman with a history of hypertension, hyperlipidemia, diabetes, hypothyroidism, status post recent stent placement in the right lower extremity, admitted on September 02 after a fall at home secondary to weakness, with the complaint of chills, chest pain and left shoulder pain without any urinary symptoms. On admission she was febrile to 100. Laboratory data revealed a white blood cell count of 13,000, with 76 segs and 12 bands, BUN/ creatinine 19 and 1.2, with normal liver enzymes, INR 1.27. Urinalysis rare RBCs/15-[address] of the chest, abdomen and pelvis revealed a stable punctate nonobstructing right renal calcification with mild bilateral perinephric stranding. She was begun on Ceftriaxone. In the evening she spiked a fever to 103.2 but she has defervesced overnight. This morning blood cultures 2 were reported positive for gram-negative rods. She feels improved with no further left shoulder or chest pain and she continues to deny any urinary symptoms. Allergies/Medications Allergies: Coded Allergies: NO KNOWN ALLERGIES (01/02/17) Home Med List: Beta-Carotene (Lumitene) 30 MG CAPSULE 15 MG PO DAILY SUPPLEMENT (Reported) Gabapentin 300 MG CAPSULE 1 CAP PO TID UNKNOWN (Reported) Glipizide 5 MG TABLET 1 TAB PO DAILY DM (Reported) Hydrochlorothiazide 25 MG TABLET 1 TAB PO DAILY WATER RETENTION (Reported) Levothyroxine Sodium 25 MCG TABLET 1 TAB PO DAILY AC thyroid (Reported) Losartan Potassium 100 MG TABLET 1 TAB PO DAILY HEART (Reported) Meloxicam 15 MG TABLET 1 TAB PO DAILY PAIN (Reported) Montelukast Sodium 10 MG TABLET 1 TAB PO DAILY ALLERGIES (Reported) Omeprazole 40 MG CAPSULE.DR 1 CAP PO DAILY GI (Reported) Sitagliptin Phos/Metformin HCl (Janumet 50-1,000 MG Tablet) 50 MG-1,000 MG TABLET 1 TAB PO BID DIABETES (Reported) Past History Travel History Traveled to [place] past 21 day No Medical History Blood Transfusion Hx: No Neurological: NONE EENT: NONE Cardiovascular: hypertension, hyperlipidemia Respiratory: asthma Gastrointestinal: GERD Hepatic: NONE Renal: NONE Musculoskeletal: osteoarthritis Psychiatric: NONE Endocrine: diabetes, hypothyroidism Blood Disorders: NONE Cancer(s): NONE 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 Home Smoking Status: Never Smoked ETOH Use: denies use Illicit Drug Use: denies illicit drug use Review of Systems Review of Systems All Other Systems: Reviewed and Negative Exam & Diagnostic Data Last 24 Hrs of Vital Signs/I&O Vital Signs Date Time Temp Pulse Resp B/P B/P Pulse O2 O2 Flow FiO2 Mean Ox Delivery Rate 09/03 1609 Room Air 09/03 1456 98.4 76 20 126/70 96 Room Air 09/03 1455 98.4 76 20 126/70 96 Room Air 09/03 1220 98.9 76 22 122/60 95 Room Air 09/03 1216 98.9 76 22 122/60 95 Room Air 09/03 1131 98.9 09/03 1033 100.2 09/03 1032 100.2 09/03 0609 99.3 89 20 103/57 95 Room Air 09/03 0003 98.7 99 18 102/51 95 Room Air 09/02 2154 103.1 09/02 2134 94 09/02 2100 103.2 123 20 152/67 98 Room Air 09/02 1825 98.7 76 18 119/60 98 Room Air 09/02 1820 71 16 117/71 100 Room Air Intake & Output 09/03 1600 09/03 0800 09/03 0000 Intake Total 660 Output Total Balance 660 Intake, IV 300 Intake, Oral 360 Number 1 Bowel Movements Patient 180 lb Weight Weight Reported by Patient Measurement Method Physical Exam Other Physical Findings: MAXIMUM TEMPERATURE 103.2. She is awake and alert in no acute distress. Skin reveals no rash. HEENT negative. Neck is supple with no adenopathy. Lungs are clear. Heart regular rhythm with no murmur. Abdomen is soft, tender on palpation of the left upper quadrant, with no guarding or rebound, with positive bowel sounds. Back mild bilateral CVA tenderness. Extremities left knee with mild swelling, with normal range of motion; left shoulder with normal range of motion; no cyanosis, clubbing or edema of the lower extremities. Neuro is without focality. Last 24 Hours of Lab Results: Laboratory Tests 09/03 09/03 09/02 1450 0607 2204 Chemistry Sodium (137 - 145 mmol/L) 132 L Potassium (3.5 - 5.1 mmol/L) 4.1 Chloride (98 - 107 mmol/L) 96 L Carbon Dioxide (22 - 30 mmol/L) 27 Anion Gap (5 - 16) 9 BUN (7 - 17 mg/dL) 22 H Creatinine (0.5 - 1.0 mg/dL) 1.5 H Estimated GFR (>60 ml/min) 34 L BUN/Creatinine Ratio (7 - 25 %) 14.7 Lactic Acid (0.7 - 2.1 mmol/L) 1.4 Troponin I (< 0.11 ng/ml) 0.04 Hematology CBC w Diff NO MAN DIFF REQ WBC (4.8 - 10.8 /CUMM) 17.5 H RBC (4.20 - 5.40 /CUMM) 3.84 L Hgb (12.0 - 16.0 G/DL) 9.1 L Hct (37 - 47 %) 28.5 L MCV (81.0 - 99.0 FL) 74.2 L MCH (27.0 - 31.0 PG) 23.8 L MCHC (33.0 - 37.0 G/DL) 32.1 L RDW (11.5 - 14.5 %) 17.5 H Plt Count (130 - 400 /CUMM) 200 MPV (7.4 - 10.4 FL) 9.4 Gran % (42.2 - 75.2 %) 90.1 H Lymphocytes % (20.5 - 51.1 %) 5.2 L Monocytes % (1.7 - 9.3 %) 4.6 Eosinophils % (0 - 5 %) 0 Basophils % (0.0 - 2.0 %) 0.1 Absolute Granulocytes (1.4 - 6.5 /CUMM) 15.8 H Absolute Lymphocytes (1.2 - 3.4 /CUMM) 0.9 L Absolute Monocytes (0.10 - 0.60 /CUMM) 0.8 H Absolute Eosinophils (0.0 - 0.7 /CUMM) 0 Absolute Basophils (0.0 - 0.2 /CUMM) 0 09/02 1846 Urines Urine Osmolality Cancelled Ur Random Creatinine Cancelled Ur Random Sodium Cancelled Ur Random Potassium Cancelled Fraction Sodium Excret Cancelled Last 24 Hours of Khalif Results: Blood cultures 2 September 02 positive for gram negative rods Urine culture September 02 greater than 100,000 colonies of gram-negative rods Rapid flu swab September 02 negative Diagnostic Data Recent Imaging Findings: CT of the chest, abdomen and pelvis revealed a stable punctate nonobstructing right renal calcification with mild bilateral perinephric stranding. Assessment/Plan Assessment/Plan Impression: This is a 72-year-old woman with a history of hypertension and diabetes, admitted on September 02 after a fall at home secondary to weakness, with the complaint of chills, chest pain and left shoulder pain, without any urinary symptoms, found to be febrile with a leukocytosis/ bandemia and pyuria with blood and urine cultures reported positive for gram-negative rods. Her clinical picture is consistent with sepsis of urologic origin. She has no urinary complaints, but she does have mild bilateral CVA tenderness and her CT scan does reveal bilateral perinephric stranding. She has been evaluated by Urology for the nonobstructing right renal calcification, with no intervention planned. She appears to have defervesced on Ceftriaxone, and this can be continued pending final cultures. Suggestion: 1. Follow-up final blood and urine cultures 2. Continue Ceftriaxone (would reduce to 1 g IV every 24 hours) pending above Consult Acknowledgment - Thank you for your consult request.
[2017-09-03 22:54] VITALS: BP 154/82
[2017-09-04 06:40] VITALS: BP 150/80
--- NOTE | 2017-09-04 07:11 | Cons- Urology ---
General Information and HPI Consulting Request Date of Consult: 09/04/17 Requested By: Jake Mendez MD Reason for Consult: PYELONEPHRITIS Source of Information: patient, old records Exam Limitations: no limitations History of Present Illness: CT findings discussed with pt as well. No surgical intervention at this time.] This is a 72-year-old woman with a history of hypertension, hyperlipidemia, diabetes, hypothyroidism, status post recent stent placement in the right lower extremity, admitted on September 02 after a fall at home secondary to weakness, with the complaint of chills, chest pain and left shoulder pain without any urinary symptoms. On admission she was febrile to 100. Laboratory data revealed a white blood cell count of 13,000, with 76 segs and 12 bands, BUN/ creatinine 19 and 1.2, with normal liver enzymes, INR 1.27. Urinalysis rare RBCs/15-[address] of the chest, abdomen and pelvis revealed a stable punctate nonobstructing right renal calcification with mild bilateral perinephric stranding. She was begun on Ceftriaxone. In the evening she spiked a fever to 103.2 but she has defervesced overnight. This morning blood cultures 2 were reported positive for gram-negative rods. She feels improved with no further left shoulder or chest pain and she continues to deny any urinary symptoms. Allergies/Medications Allergies: Coded Allergies: NO KNOWN ALLERGIES (01/02/17) Home Med List: Beta-Carotene (Lumitene) 30 MG CAPSULE 15 MG PO DAILY SUPPLEMENT (Reported) Gabapentin 300 MG CAPSULE 1 CAP PO TID UNKNOWN (Reported) Glipizide 5 MG TABLET 1 TAB PO DAILY DM (Reported) Hydrochlorothiazide 25 MG TABLET 1 TAB PO DAILY WATER RETENTION (Reported) Levothyroxine Sodium 25 MCG TABLET 1 TAB PO DAILY AC thyroid (Reported) Losartan Potassium 100 MG TABLET 1 TAB PO DAILY HEART (Reported) Meloxicam 15 MG TABLET 1 TAB PO DAILY PAIN (Reported) Montelukast Sodium 10 MG TABLET 1 TAB PO DAILY ALLERGIES (Reported) Omeprazole 40 MG CAPSULE.DR 1 CAP PO DAILY GI (Reported) Sitagliptin Phos/Metformin HCl (Janumet 50-1,000 MG Tablet) 50 MG-1,000 MG TABLET 1 TAB PO BID DIABETES (Reported) Current Medications: Current Medications Sig/Wesley Start time Last Medication Dose Route Stop Time Status Admin Acetaminophen 650 MG .STK-MED ONE 02/15 1818 DC PO 09/03 1819 Acetaminophen 0 .STK-MED ONE 09/03 1034 DC PO Acetaminophen 650 MG Q6P PRN 09/02 1830 AC 09/03 PO 1819 Acetaminophen 1,000 MG Q6P PRN 09/02 1830 AC 09/04 IV 0643 Albuterol Sulfate 3 ML Q6 PRN 09/02 1900 AC 09/02 INH 2135 Bismuth Subsalicylate 30 ML ONCE ONE 09/03 1815 DC 09/03 PO 09/03 1816 1924 Ceftriaxone Sodium 1,000 MG 1600 09/04 1600 DC IV Ceftriaxone Sodium 1,000 MG 1600 09/03 1730 AC 09/03 IV 1809 Ceftriaxone Sodium 1,000 MG 1600 09/03 1600 DC IV Ceftriaxone Sodium 2,000 MG 1600 09/03 1600 DC IV Ceftriaxone Sodium 1,000 MG DAILY 09/03 1000 DC IV Gabapentin 300 MG TID 09/02 1848 AC 09/03 PO 2255 Heparin Sodium 0 .STK-MED ONE 09/03 1457 DC (Porcine) .ROUTE Heparin Sodium 5,000 UNIT Q8 09/02 2200 AC 09/04 (Porcine) SC 0519 Insulin Aspart 0 TIDAC 09/03 0800 AC 09/03 SC 0821 Levothyroxine Sodium 0.025 MG DAILY AC 09/02 1848 AC 09/04 PO 0519 Montelukast Sodium 10 MG DAILY 09/02 1849 AC 09/03 PO 1032 Omeprazole 40 MG DAILY AC 09/02 1849 AC 09/04 PO 0519 Sodium Chloride 1,000 ML Q13H 09/02 1815 DC 09/02 IV 09/03 0714 1820 Tiotropium [place] 1 PUF DAILY 09/02 1851 AC 09/03 INH 1032 Past History Medical History Blood Transfusion Hx: No Neurological: NONE EENT: NONE Cardiovascular: hypertension, hyperlipidemia Respiratory: asthma Gastrointestinal: GERD Hepatic: NONE Renal: NONE Musculoskeletal: osteoarthritis Psychiatric: NONE Endocrine: diabetes, hypothyroidism Blood Disorders: NONE Cancer(s): NONE 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 Home Smoking Status: Never Smoked ETOH Use: denies use Illicit Drug Use: denies illicit drug use Employment History Retired? unknown Review of Systems Review of Systems Constitutional: Reports: chills, diaphoresis. EENTM: Denies: no symptoms. Cardiovascular: Denies: no symptoms. Respiratory: Denies: no symptoms. GI: Denies: no symptoms. Genitourinary: Denies: no symptoms. Musculoskeletal: Denies: no symptoms. Exam & Diagnostic Data Vital Signs and I&O Vital Signs Date Time Temp Pulse Resp B/P B/P Pulse O2 O2 Flow FiO2 Mean Ox Delivery Rate 09/04 0643 101.5 09/04 0640 99.0 70 20 150/80 92 Room Air 09/04 0000 Room Air 09/03 2254 99.4 89 16 154/82 97 Room Air 09/03 2247 100.1 09/03 2123 100.1 09/03 2027 102.6 09/03 2000 102.6 09/03 1800 99.0 09/03 1609 Room Air 09/03 1510 99.5 76 18 142/64 96 Room Air 09/03 1456 98.4 76 20 126/70 96 Room Air 09/03 1455 98.4 76 20 126/70 96 Room Air 09/03 1220 98.9 76 22 122/60 95 Room Air 09/03 1216 98.9 76 22 122/60 95 Room Air 09/03 1131 98.9 09/03 1033 100.2 09/03 1032 100.2 Intake & Output 09/04 0800 09/04 0000 09/03 1600 09/03 0800 09/03 0000 09/02 1600 Intake Total 250 1450 660 0 Output Total Balance 250 1450 660 0 Intake, IV 300 Intake, Oral 250 1450 360 0 Number 1 1 Bowel Movements Patient 180 lb 180 lb Weight Weight Reported by Patient Estimated Measurement Method Physical Exam General Appearance: well developed/nourished, no apparent distress Head: atraumatic Eyes: Bilateral: normal appearance. Respiratory: normal breath sounds Cardiovascular: regular rate/rhythm Gastrointestinal: normal bowel sounds Back: no vertebral tenderness Extremities: normal inspection Neurologic/Psych: no motor/sensory deficits, awake, alert, oriented x 3 Skin: intact, normal color, warm/dry Last 24 Hours of Labs: Laboratory Tests 09/04 09/03 09/03 0655 2100 1450 Chemistry Sodium Pending Potassium Pending Chloride Pending Carbon Dioxide Pending Anion Gap Pending BUN Pending Creatinine Pending BUN/Creatinine Ratio Pending Lactic Acid (0.7 - 2.1 mmol/L) 1.4 1.4 Hematology CBC w Diff Pending WBC Pending RBC Pending Hgb Pending Hct Pending MCV Pending MCH Pending MCHC Pending RDW Pending Plt Count Pending MPV Pending Imaging Results: PATIENT: ALINA MARCH PRESENT AGE: 72 PATIENT ACCOUNT NO: [id number] : 43 LOCATION: [facility] ORDERING PHYSICIAN: Cain HODGSON SERVICE DATE: 09/02/17125 EXAM TYPE: CAT - CT ABD & PELVIS W/O IV CONTRAS; CT CHEST WO IV CONTRAST EXAMINATION: CT CHEST WITHOUT CONTRAST CT ABDOMEN AND PELVIS WITHOUT CONTRAST CLINICAL INFORMATION: Chest pain. Cough. Abdominal pain. COMPARISON: CT abdomen 11/28/2014. Chest x-ray of 10/25/2008. Abdominal ultrasound of 05/17/2014. TECHNIQUE: Multidetector volumetric CT imaging of the chest, abdomen and pelvis is acquired without intravenous or oral contrast administration. Sagittal and coronal reformatted images were obtained on the technologist's workstation. DLP: 898.14 mGy-cm FINDINGS: CHEST: Lungs: There is no evidence of airspace and ground-glass opacities suggestive of infectious or inflammatory process. A 4 mm calcified granuloma is noted at the left lung base (series 5 image 308). A punctate dense nodule is noted in the left upper lobe posteriorly along the major fissure (series 5 image 186) most likely representing a tiny calcified granuloma as well. Minimal dependent changes are noted at the lung bases. Lower Neck And Mediastinum: The thyroid gland is unremarkable with mild asymmetry of the size of the thyroid lobes, right larger than left. No evidence of mediastinal or hilar adenopathy. Subcentimeter scattered mediastinal lymph nodes are noted. Cardiac size is normal. Trace pericardial fluid versus pericardial thickening. Trachea and central bronchi are well patent. The aorta and central pulmonary arteries are normal in caliber. There is calcific atherosclerosis of the aorta. Calcified left hilar lymph nodes are seen. Pleura: No evidence of pleural effusion, mass, thickening or pneumothorax. Axillae: No adenopathy. Chest wall soft tissues: Unremarkable. ABDOMEN AND PELVIS: Liver, Gallbladder, And Biliary Tree: The liver is normal in size, shape, and attenuation. No focal hepatic lesion or biliary ductal dilatation is present. The gallbladder is unremarkable with no evidence of radiopaque gallstones, gallbladder wall thickening, or obvious pericholecystic inflammatory changes. Pancreas: Unremarkable. Spleen: Unremarkable. Adrenal Glands: Unremarkable. Kidneys And Ureters: The kidneys are normal in size, shape, and attenuation. No hydroureteronephrosis. A stable punctate nonobstructing calcification is noted in the mid to lower right kidney. No additional radiopaque urinary tract calculi are seen. There is mild bilateral perinephric stranding which is a new finding compared to previous CT and is nonspecific. Bladder: Underdistended and therefore not optimally evaluated. No evidence of radiopaque bladder calculi. Gastrointestinal Tract: The small and large bowel are unremarkable. The appendix is unremarkable. Abdominal Wall: No significant hernia is appreciated. Lymph Nodes: No pathologically enlarged lymph nodes. Vascular: The aortoiliac vessels are normal in caliber. Mild calcific atherosclerosis of the aortoiliac vessels. A stent is noted in the right common iliac vein. Pelvic Viscera: The uterus is not seen, likely surgically absent. No adnexal mass. Osseous Structures: There is no evidence of acute or suspicious osseous abnormality in the chest, abdomen and pelvis. There is minimal anterior subluxation of L4 over L5. Mild anterior wedge compression of T11 is a stable finding. Mild chronic-appearing anterior wedge compression at T6 and T7 with sclerotic endplate marrow changes are noted. IMPRESSION: 1. No evidence of pneumonia. 2. Calcified lung nodules and calcified left hilar lymph node suggests prior granulomatous disease exposure. 3. No evidence of radiopaque gallstones. No CT evidence of acute cholecystitis. 4. Normal appendix. 5. Stable punctate nonobstructing right renal calcification. Mild bilateral perinephric stranding is nonspecific however new compared to previous CT and findings can be seen in the setting of pyelonephritis. No hydroureteronephrosis. Other Results: Patient : ALINA MARCH Acct: [id number] DR: Jake Mendez MD Birthdate: [birth year] Age/Sex: 72/F Unit: [id number] Loc: 1NO 175- 01 Status : ADM IN SPEC #: [id number] AJIT: 09/02/17 STATUS: RES RECD: 09/02/[address]: Cain Purcell SOURCE: URINE ROUT ENTR: 09/02/[address]: Jake Mendez MD SPDESC: URIN CLEAN ORDERED: URINE CULTURE COMMENT: UC ADDED AT 1536 PER PA.BLER Procedure Result > URINE CULTURE Preliminary 09/03/17-829 Greater than 100,000 colonies per ml of: GRAM NEGATIVE RODS Identification and susceptibilities to follow Assessment/Plan Assessment/Plan Pt with UROSEPSIS and small bilatral renal stones WITHOUT obstruction: continue with supportive tx and IV abx: based on sensitivites. No intervention would be warranted/helpful at this time. Copies To: Ugo Finney MD Consult Acknowledgment - Thank you for your consult request. 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 with IV abx: recommended Dr. Pitts to see pt for ID.
--- NOTE | 2017-09-04 07:30 | PN- Housestaff ---
Subjective Follow-up For: Acute pyelonephritis/Urosepsis Subjective: Reports L flank pain. Low grade fever overnight. Review of Systems Constitutional: Reports: see HPI. Objective Last 24 Hrs of Vital Signs/I&O Vital Signs Date Time Temp Pulse Resp B/P B/P Pulse O2 O2 Flow FiO2 Mean Ox Delivery Rate 09/04 0741 102.6 09/04 0643 101.5 09/04 0640 99.0 70 20 150/80 92 Room Air 09/04 0000 Room Air 09/03 2254 99.4 89 16 154/82 97 Room Air 09/03 2247 100.1 09/03 2123 100.1 09/03 2027 102.6 09/03 2000 102.6 09/03 1800 99.0 09/03 1609 Room Air 09/03 1510 99.5 76 18 142/64 96 Room Air 09/03 1456 98.4 76 20 126/70 96 Room Air 09/03 1455 98.4 76 20 126/70 96 Room Air 09/03 1220 98.9 76 22 122/60 95 Room Air 09/03 1216 98.9 76 22 122/60 95 Room Air 09/03 1131 98.9 Intake & Output 09/04 1600 09/04 0800 09/04 0000 Intake Total 250 1450 Output Total Balance 250 1450 Intake, Oral 250 1450 Number 1 Bowel Movements Physical Exam General Appearance: Alert, Oriented X3, Cooperative Cardiovascular: Regular Rate, Normal S1, Normal S2 Lungs: Clear to Auscultation, Normal Air Movement Abdomen: Normal Bowel Sounds, Soft, L flank pain Extremities: No Edema Current Medications: Current Medications Sig/Wesley Start time Last Medication Dose Route Stop Time Status Admin Acetaminophen 650 MG .STK-MED ONE 09/03 1817 DC PO 09/03 181 Acetaminophen 650 MG Q6P PRN 09/02 1830 AC 09/03 PO 1819 Acetaminophen 1,000 MG Q6P PRN 09/02 1830 AC 09/04 IV 0643 Albuterol Sulfate 3 ML Q6 PRN 09/02 1900 AC 09/02 INH 2135 Bismuth Subsalicylate 30 ML ONCE ONE 09/03 1815 DC 09/03 PO 09/03 1816 1924 Ceftriaxone Sodium 1,000 MG 1600 09/04 1600 DC IV Ceftriaxone Sodium 1,000 MG 1600 09/03 1730 AC 09/03 IV 1809 Ceftriaxone Sodium 1,000 MG 1600 09/03 1600 DC IV Ceftriaxone Sodium 2,000 MG 1600 09/03 1600 DC IV Gabapentin 300 MG TID 09/02 184 AC 09/04 PO 0806 Heparin Sodium 0 .STK-MED ONE 09/03 1457 DC (Porcine) .ROUTE Heparin Sodium 5,000 UNIT Q8 09/02 2200 AC 09/04 (Porcine) SC 0519 Insulin Aspart 0 TIDAC 09/03 0800 AC 09/03 SC 0821 Levothyroxine Sodium 0.025 MG DAILY AC 09/02 1848 AC 09/04 PO 0519 Montelukast Sodium 10 MG DAILY 09/02 1849 AC 09/04 PO 0806 Omeprazole 40 MG DAILY AC 09/02 184 AC 09/04 PO 0519 Sodium Chloride 1,000 ML Q20H 09/04 0745 AC 09/04 IV 09/05 2344 0805 Tiotropium [place] 1 PUF DAILY 09/02 1851 AC 09/04 INH 0806 Last 24 Hrs of Lab/Khalif Results Last 24 Hrs of Labs/Mics: Laboratory Tests 09/04/17 0655: Anion Gap 10, Estimated GFR 44 L, BUN/Creatinine Ratio 15.0, CBC w Diff NO MAN DIFF REQ, RBC 3.92 L, MCV 74.0 L, MCH 23.9 L, MCHC 32.3 L, RDW 17.6 H, MPV 10.3, Gran % 81.6 H, Lymphocytes % 9.5 L, Monocytes % 8.5, Eosinophils % 0.3, Basophils % 0.1, Absolute Granulocytes 7.9 H, Absolute Lymphocytes 0.9 L, Absolute Monocytes 0.8 H, Absolute Eosinophils 0, Absolute Basophils 0 09/03/17 2100: Lactic Acid 1.4 09/03/17 1450: Lactic Acid 1.4 Microbiology 09/04 0750 BLOOD: Blood Culture - RECD 09/04 0716 BLOOD: Blood Culture - RECD Assessment/Plan Assessment: Ms Cavazos is a 72 yo f with a past medical history significant for hypertension, hyperlipidemia, diabetes mellitus, hypothyroidism, GERD, recent stent placement right lower extremity admitted with flank pain, fever, chills Acute Pyelonephritis/Urosepsis CT ABD/PEL showed perinephric stranding and patient reported a fever, chills and flank pain most consistent with an acute complicated UTI. * Continue IV Ceftriaxone * Urology recommendations appreciated * ID recommendations appreciated Acute kidney injury Patient was found to have creatinine 1.20 the time of admission. Most likely from dehydration and pyelonephritis. * Continue gentle hydration * repeat BEP in the a.m. to monitor renal function * Hold hydrochlorothiazide and losartan for DUSTIN Hyponatremia Sodium 129 at the time of admission most likely hypovolemic hyponatremia. * Monitor sodium Hx of Diabetes * Novolog SS * Accuchecks Diet: Diabetic DVT prophylaxis subcutaneous heparin Code: FULL Problem List: 1. Pyelonephritis 2. Leukocytosis 3. Kidney stones Pain Ratin Pain Location: L flank pain Pain Goal: Remain pain free Pain Plan: NA Tomorrow's Labs & Rationales: CBC for white count BEP for DUTSIN
[2017-09-04 07:56] LABS: ABSOLUTE BASOPHIL COUNT 0 /CUMM (0.0-0.2); ABSOLUTE EOSINOPHIL COUNT 0 /CUMM (0.0-0.7); ABSOLUTE GRANULOCYTE CT 7.9 /CUMM (1.4-6.5); ABSOLUTE LYMPH COUNT 0.9 /CUMM (1.2-3.4); ABSOLUTE MONOCYTE COUNT 0.8 /CUMM (0.10-0.60); BASOPHIL % 0.1 % (0.0-2.0); EOSINOPHIL % 0.3 % (0-5); GRANULOCYTE % 81.6 % (42.2-75.2); MEAN CORPUSCULAR HGB 23.9 PG (27.0-31.0); MEAN CORPUSCULAR HGB CONC 32.3 G/DL (33.0-37.0); MEAN PLATELET VOLUME 10.3 FL (7.4-10.4); PLATELET COUNT 204 /CUMM (130-400); RBC DISTRIBUTION WIDTH 17.6 % (11.5-14.5); RED BLOOD CELL CT 3.92 /CUMM (4.20-5.40); WHITE BLOOD CELL COUNT 9.6 /CUMM (4.8-10.8)
--- NOTE | 2017-09-04 10:56 | PN- Att Addend ---
Attending Addendum Attending Brief Note Patient just returned from an ultrasound. Appreciate urology and infectious diseases input and recommendations. Patient temp max was 102.6 earlier, clinically she looks better. Her other vital signs are stable. No major changes on physical. Walked from the stretcher to the chair with no problems area count is normal. Her urine culture shows Escherichia coli sensitive to all antibiotics for the gram-negative from the blood cultures is not identified yet. We'll continue antibiotic therapy as per recommendations from infectious diseases. Intake & Output 09/04 1600 09/04 0400 09/03 1600 09/03 0400 09/02 1600 09/02 0400 Intake Total 250 1450 660 0 Output Total Balance 250 1450 660 0 Intake, IV 300 Intake, Oral 250 1450 360 0 Number 1 1 Bowel Movements Patient 180 lb 180 lb Weight Weight Reported by Patient Estimated Measurement Method Current Medications Sig/Wesley Start time Last Medication Dose Route Stop Time Status Admin Acetaminophen 650 MG .STK-MED ONE 09/03 181 DC PO 09/03 1819 Acetaminophen 650 MG Q6P PRN 09/02 1830 AC 09/03 PO 1819 Acetaminophen 1,000 MG Q6P PRN 09/02 1830 AC 09/04 IV 0643 Albuterol Sulfate 3 ML Q6 PRN 09/02 1900 AC 09/02 INH 2135 Bismuth Subsalicylate 30 ML ONCE ONE 09/03 1815 DC 09/03 PO 09/03 1816 1924 Ceftriaxone Sodium 1,000 MG 1600 09/04 1600 DC IV Ceftriaxone Sodium 1,000 MG 1600 09/03 1730 AC 09/03 IV 1809 Ceftriaxone Sodium 1,000 MG 1600 09/03 1600 DC IV Ceftriaxone Sodium 2,000 MG 1600 09/03 1600 DC IV Gabapentin 300 MG TID 09/02 1848 AC 09/04 PO 0806 Heparin Sodium 0 .STK-MED ONE 09/03 1457 DC (Porcine) .ROUTE Heparin Sodium 5,000 UNIT Q8 09/02 2200 AC 09/04 (Porcine) SC 0519 Insulin Aspart 0 TIDAC 09/03 0800 AC 09/03 SC 0821 Levothyroxine Sodium 0.025 MG DAILY AC 09/02 1848 AC 09/04 PO 0519 Montelukast Sodium 10 MG DAILY 09/02 184 AC 09/04 PO 0806 Omeprazole 40 MG DAILY AC 09/02 184 09/04 PO 0519 Sodium Chloride 1,000 ML Q20H 09/04 0745 09/04 IV 09/05 2344 0805 Tiotropium [place] 1 PUF DAILY 09/02 185 09/04 INH 0806 Laboratory Tests 09/04/17 0655: Anion Gap 10, Estimated GFR 44 L, BUN/Creatinine Ratio 15.0, CBC w Diff NO MAN DIFF REQ, RBC 3.92 L, MCV 74.0 L, MCH 23.9 L, MCHC 32.3 L, RDW 17.6 H, MPV 10.3, Gran % 81.6 H, Lymphocytes % 9.5 L, Monocytes % 8.5, Eosinophils % 0.3, Basophils % 0.1, Absolute Granulocytes 7.9 H, Absolute Lymphocytes 0.9 L, Absolute Monocytes 0.8 H, Absolute Eosinophils 0, Absolute Basophils 0 09/03/17 2100: Lactic Acid 1.4 09/03/17 1450: Lactic Acid 1.4 09/03/17 0607: Anion Gap 9, Estimated GFR 34 L, BUN/Creatinine Ratio 14.7, CBC w Diff NO MAN DIFF REQ, RBC 3.84 L, MCV 74.2 L, MCH 23.8 L, MCHC 32.1 L, RDW 17.5 H, MPV 9.4, Gran % 90.1 H, Lymphocytes % 5.2 L, Monocytes % 4.6, Eosinophils % 0, Basophils % 0.1, Absolute Granulocytes 15.8 H, Absolute Lymphocytes 0.9 L, Absolute Monocytes 0.8 H, Absolute Eosinophils 0, Absolute Basophils 0 09/02/17 2204: Troponin I 0.04 09/02/17 1846: Urine Osmolality Cancelled, Ur Random Creatinine Cancelled, Ur Random Sodium Cancelled, Ur Random Potassium Cancelled, Fraction Sodium Excret Cancelled 09/02/17 1600: Iron < 10 L, TIBC 318, Ferritin 23.4, Troponin I 0.03, Vitamin B12 210 L, Folate 14.6 09/02/17 1508: Urine Color YEL, Urine Clarity CLEAR, Urine pH 6.0, Ur Specific [place] 1.010, Urine Protein 30 H, Urine Ketones NEG, Urine Nitrite NEG, Urine Bilirubin NEG, Urine Urobilinogen 0.2, Ur Leukocyte Esterase MOD H, Ur Microscopic SEDIMENT EXAMINED, Urine RBC RARE, Urine WBC 15-25 H, Ur Epithelial Cells MOD H, Urine Bacteria MANY H, Urine Hemoglobin TRACE-INTACT, Urine Glucose NEG 09/02/17 1508: Urine Osmolality 368, Ur Random Creatinine 177.5, Ur Random Sodium 8 L, Ur Random Potassium 60.1, Fraction Sodium Excret 0.0 09/02/17 1203: Lactic Acid 1.7 09/02/17 1203: Anion Gap 12, Estimated GFR 44 L, BUN/Creatinine Ratio 15.8, Glucose 140 H, Calcium 9.0, Total Bilirubin 0.6, AST 28, ALT 34, Alkaline Phosphatase 96, Troponin I 0.03, Total Protein 6.4, Albumin 3.8, Globulin 2.6, Albumin/Globulin Ratio 1.5, Lipase 59, PT 13.3 H, INR 1.27 H, CBC w Diff MAN DIFF ORDERED, RBC 4.04 L, MCV 74.1 L, MCH 23.8 L, MCHC 32.2 L, RDW 17.0 H, MPV 9.2, Gran % 93.0 H, Lymphocytes % 4.9 L, Monocytes % 1.9, Eosinophils % 0.1, Basophils % 0.1, Absolute Granulocytes 11.9 H, Segmented Neutrophils 76 H, Band Neutrophils 12 H, Absolute Lymphocytes 0.6 L, Lymphocytes 8 L, Monocytes 2, Absolute Monocytes 0.2, Eosinophils 1, Absolute Eosinophils 0, Basophils 1, Absolute Basophils 0, Platelet Estimate ADEQUATE, Polychromasia 1+, Hypochromic- Microcytic 2+, Poikilocytosis 1+, Basophilic Stippling RARE, Anisocytosis 1+, Microcytic Cells 1+, Elliptocytes RARE, Schistocytes RARE, Fld Total RBCs Counted 100 Microbiology 09/04 0750 BLOOD: Blood Culture - RECD 09/04 0716 BLOOD: Blood Culture - RECD 09/02 1600 BLOOD: Blood Culture - RES GRAM NEGATIVE RODS 09/02 1550 BLOOD: Blood Culture - RES GRAM NEGATIVE RODS 09/02 1508 URINE ROUT: Urine Culture - RES GRAM NEGATIVE RODS 09/02 1207 NASOPHARYN: Influenza Virus A & B Rapid Smear - COMP Microbiology 09/04 0750 BLOOD: Blood Culture - RECD 09/04 0716 BLOOD: Blood Culture - RECD 09/02 1600 BLOOD: Blood Culture - RES GRAM NEGATIVE RODS 09/02 1550 BLOOD: Blood Culture - RES GRAM NEGATIVE RODS 09/02 1508 URINE ROUT: Urine Culture - RES GRAM NEGATIVE RODS 09/02 1207 NASOPHARYN: Influenza Virus A & B Rapid Smear - COMP Vital Signs Date Time Temp Pulse Resp B/P B/P Pulse O2 O2 Flow FiO2 Mean Ox Delivery Rate 09/04 0741 102.6 09/04 0643 101.5 09/04 0640 99.0 70 20 150/80 92 Room Air 09/04 0000 Room Air 09/03 2254 99.4 89 16 154/82 97 Room Air 09/03 2247 100.1 09/03 2123 100.1 09/03 2027 102.6 09/03 2000 102.6 09/03 1800 99.0 09/03 1609 Room Air 09/03 1510 99.5 76 18 142/64 96 Room Air 09/03 1456 98.4 76 20 126/70 96 Room Air 09/03 1455 98.4 76 20 126/70 96 Room Air 09/03 1220 98.9 76 22 122/60 95 Room Air 09/03 1216 98.9 76 22 122/60 95 Room Air 09/03 1131 98.9
--- NOTE | 2017-09-04 12:40 | PN- Infect Dx ---
Subjective Subjective: MAXIMUM TEMPERATURE 102.6. She feels improved with no complaints at this time. Objective Last 24 Hrs of Vital Signs/I&O Vital Signs Date Time Temp Pulse Resp B/P B/P Pulse O2 O2 Flow FiO2 Mean Ox Delivery Rate 09/04 1040 98.3 09/04 0741 102.6 09/04 0643 101.5 09/04 0640 99.0 70 20 150/80 92 Room Air 09/04 0000 Room Air 09/03 2254 99.4 89 16 154/82 97 Room Air 09/03 2247 100.1 09/03 2123 100.1 09/03 2027 102.6 09/03 2000 102.6 09/03 1800 99.0 09/03 1609 Room Air 09/03 1510 99.5 76 18 142/64 96 Room Air 09/03 1456 98.4 76 20 126/70 96 Room Air 09/03 1455 98.4 76 20 126/70 96 Room Air Intake & Output 09/04 1600 09/04 0800 09/04 0000 Intake Total 250 1450 Output Total Balance 250 1450 Intake, Oral 250 1450 Number 1 Bowel Movements Physical Exam Other Physical Findings: She appears well in no acute distress Lungs are clear Heart regular rhythm with no murmur Abdomen is soft, tender on palpation over the right upper quadrant, epigastrium and, to a lesser extent, the left upper quadrant Back mild left CVA tenderness Extremities no cyanosis, clubbing or edema Results Last 24 Hours of Lab Results: Laboratory Tests 09/04 09/03 09/03 0655 2100 1450 Chemistry Sodium (137 - 145 mmol/L) 133 L Potassium (3.5 - 5.1 mmol/L) 4.3 Chloride (98 - 107 mmol/L) 96 L Carbon Dioxide (22 - 30 mmol/L) 27 Anion Gap (5 - 16) 10 BUN (7 - 17 mg/dL) 18 H Creatinine (0.5 - 1.0 mg/dL) 1.2 H Estimated GFR (>60 ml/min) 44 L BUN/Creatinine Ratio (7 - 25 %) 15.0 Lactic Acid (0.7 - 2.1 mmol/L) 1.4 1.4 Hematology CBC w Diff NO MAN DIFF REQ WBC (4.8 - 10.8 /CUMM) 9.6 RBC (4.20 - 5.40 /CUMM) 3.92 L Hgb (12.0 - 16.0 G/DL) 9.4 L Hct (37 - 47 %) 29.0 L MCV (81.0 - 99.0 FL) 74.0 L MCH (27.0 - 31.0 PG) 23.9 L MCHC (33.0 - 37.0 G/DL) 32.3 L RDW (11.5 - 14.5 %) 17.6 H Plt Count (130 - 400 /CUMM) 204 MPV (7.4 - 10.4 FL) 10.3 Gran % (42.2 - 75.2 %) 81.6 H Lymphocytes % (20.5 - 51.1 %) 9.5 L Monocytes % (1.7 - 9.3 %) 8.5 Eosinophils % (0 - 5 %) 0.3 Basophils % (0.0 - 2.0 %) 0.1 Absolute Granulocytes (1.4 - 6.5 /CUMM) 7.9 H Absolute Lymphocytes (1.2 - 3.4 /CUMM) 0.9 L Absolute Monocytes (0.10 - 0.60 /CUMM) 0.8 H Absolute Eosinophils (0.0 - 0.7 /CUMM) 0 Absolute Basophils (0.0 - 0.2 /CUMM) 0 Last 24 Hours of Khalif Results: Blood cultures 2 positive for gram-negative rods Urine culture September 02 greater than 100,000 colonies of Escherichia coli resistant to Ampicillin, Unasyn and Bactrim Recent Imaging Studies: Abdominal ultrasound September 04 negative Assessment/Plan ID Impression: Improving overall with no further weakness, decreased complaints of pain and with white blood cell count now normal, though she remains febrile on Ceftriaxone Day 2 of treatment for presumed sepsis of urologic origin, with Escherichia coli sensitive to Ceftriaxone isolated from the urine culture and with blood cultures 2 positive for gram-negative rods, presumably the same Escherichia coli. Suggestion: 1. Follow-up final blood cultures 2. Continue Ceftriaxone pending above Kamila Snow MD is covering for the weekend
--- NOTE | 2017-09-04 12:58 | ULTRASOUND REPORT ---
EXAMINATION: US ABDOMEN COMPLETE CLINICAL INFORMATION: Right upper quadrant pain. COMPARISON: CT chest, abdomen and pelvis 09/02/2017 TECHNIQUE: Real-time imaging of the abdominal viscera. FINDINGS: PANCREAS: Visualized portions of pancreas are normal in appearance. ABDOMINAL AORTA: The proximal segment is normal in caliber. INFERIOR VENA CAVA: Visualized portions are normal. LIVER: The liver is normal in size but demonstrates diffusely increased attenuation. There are regions of decreased attenuation specifically in the region of the gallbladder. No focal hepatic lesion identified. No intrahepatic biliary ductal dilatation. GALLBLADDER: The gallbladder is physiologically distended without evidence of gallstones, gallbladder wall thickening or pericholecystic fluid. Punctate density with comet tail artifact along the nondependent wall the gallbladder is nonspecific but characteristically associated with adenomyomatosis. COMMON BILE DUCT: Normal in caliber measuring 0.4 cm in diameter. RIGHT KIDNEY: Normal. No hydronephrosis. No renal calculi or focal parenchymal lesions. The kidney measures 10.4 cm in maximum dimension. LEFT KIDNEY: Normal. No hydronephrosis. No renal calculi or focal parenchymal lesions. The kidney measures 11.2 cm in maximum dimension. SPLEEN: The spleen measures 11.9 cm in maximum dimension. Within the spleen is a 1.1 cm echogenic focus which is nonspecific but most suggestive of a calcification. FREE FLUID: None. IMPRESSION: 1. Diffusely increased liver echogenicity is nonspecific but most suggestive of hepatic steatosis with focal fatty sparing in the region of the gallbladder fossa. 2. Punctate density with comet tail artifact along the nondependent wall the gallbladder is nonspecific but characteristically associated with adenomyomatosis. 3. 1.1 cm nonspecific calcification within the spleen, possibly vascular in nature.
[2017-09-04 13:31] VITALS: BP 118/80
[2017-09-05 06:00] VITALS: BP 158/76
[2017-09-05 08:22] LABS: ABSOLUTE BASOPHIL COUNT 0 /CUMM (0.0-0.2); ABSOLUTE EOSINOPHIL COUNT 0 /CUMM (0.0-0.7); ABSOLUTE GRANULOCYTE CT 4.6 /CUMM (1.4-6.5); ABSOLUTE LYMPH COUNT 2.4 /CUMM (1.2-3.4); ABSOLUTE MONOCYTE COUNT 1.1 /CUMM (0.10-0.60); BASOPHIL % 0.5 % (0.0-2.0); EOSINOPHIL % 0.5 % (0-5); GRANULOCYTE % 56.5 % (42.2-75.2); HEMATOCRIT 26.6 % (37-47); MEAN CORPUSCULAR HGB 23.9 PG (27.0-31.0); MEAN CORPUSCULAR HGB CONC 32.3 G/DL (33.0-37.0); MEAN CORPUSCULAR VOLUME 74.1 FL (81.0-99.0); MEAN PLATELET VOLUME 10.5 FL (7.4-10.4); PLATELET COUNT 230 /CUMM (130-400); RBC DISTRIBUTION WIDTH 17.7 % (11.5-14.5); RED BLOOD CELL CT 3.59 /CUMM (4.20-5.40); WHITE BLOOD CELL COUNT 8.2 /CUMM (4.8-10.8)
--- NOTE | 2017-09-05 08:24 | PN- Housestaff ---
See Addendum Subjective Follow-up For: Sepsis of urologic origin/Acute pyelonephritis Tele-Events Since Last Visit: NSR HR 80-87 Subjective: Patient remains afebrile. No complaints or events overnight. She denies fever, chills, flank pain, nausea or vomiting Review of Systems Constitutional: Reports: see HPI. Objective Last 24 Hrs of Vital Signs/I&O Vital Signs Date Time Temp Pulse Resp B/P B/P Pulse O2 O2 Flow FiO2 Mean Ox Delivery Rate 09/05 1341 97 Room Air 09/05 0600 98.5 91 18 158/76 96 09/05 0534 97 Room Air Intake & Output 09/05 1600 09/05 0800 09/05 0000 Intake Total 100 300 Output Total Balance 100 300 Intake, IV 100 Intake, Oral 100 200 Number 1 Bowel Movements Physical Exam General Appearance: Alert, Oriented X3, Cooperative, No Acute Distress Cardiovascular: Regular Rate, Normal S1, Normal S2 Lungs: Clear to Auscultation, Normal Air Movement Abdomen: Normal Bowel Sounds, Soft, No Tenderness Extremities: No Edema Current Medications: Current Medications Sig/Wesley Start time Last Medication Dose Route Stop Time Status Admin Acetaminophen 650 MG Q6P PRN 09/02 1830 09/03 PO 1819 Acetaminophen 1,000 MG Q6P PRN 09/02 1830 09/04 IV 0643 Albuterol Sulfate 3 ML Q6 PRN 09/02 1900 AC 09/05 INH 0527 Ceftriaxone Sodium 1,000 MG 1600 09/03 1730 AC 09/04 IV 1553 Docusate Sodium 100 MG DAILY 09/04 2109 09/05 PO 0932 Gabapentin 300 MG TID 09/02 18409/05 PO 0932 Heparin Sodium 5,000 UNIT Q8 09/02 2200 09/05 (Porcine) SC 1500 Insulin Aspart 0 TIDAC 09/03 0800 09/05 SC 0813 Levothyroxine Sodium 0.025 MG DAILY 09/02 18409/05 PO 0508 Montelukast Sodium 10 MG DAILY 09/02 1849 09/05 PO 0932 Omeprazole 40 MG DAILY AC 09/02 18409/05 PO 0507 Senna 187 MG AT BEDTIME 09/04 2200 09/04 PO 2141 Sodium Chloride 1,000 ML Q20H 09/04 0745 09/05 IV 09/05 2344 0507 Tiotropium [place] 1 PUF DAILY 09/02 1851 09/05 INH 0932 Last 24 Hrs of Lab/Khalif Results Last 24 Hrs of Labs/Mics: Laboratory Tests 09/05/17 0620: Anion Gap 7, Estimated GFR 49 L, BUN/Creatinine Ratio 11.8, CBC w Diff NO MAN DIFF REQ, RBC 3.59 L, MCV 74.1 L, MCH 23.9 L, MCHC 32.3 L, RDW 17.7 H, MPV 10.5 H, Gran % 56.5, Lymphocytes % 28.9, Monocytes % 13.6 H, Eosinophils % 0.5 , Basophils % 0.5, Absolute Granulocytes 4.6, Absolute Lymphocytes 2.4, Absolute Monocytes 1.1 H, Absolute Eosinophils 0, Absolute Basophils 0 09/04/17 1910: Serum Osmolality 284 L Assessment/Plan Assessment: Ms Cavazos is a 72 yo f with a past medical history significant for hypertension, hyperlipidemia, diabetes mellitus, hypothyroidism, GERD, recent stent placement right lower extremity admitted with flank pain, fever, chills Acute Pyelonephritis/Sepsis of Urologic origin CT ABD/PEL showed perinephric stranding and patient reported a fever, chills and flank pain most consistent with an acute complicated UTI. * Continue IV Ceftriaxone * Urology recommendations appreciated * ID recommendations appreciated * UC sensitive to Ceftriaxone Acute kidney injury Patient was found to have creatinine 1.20 the time of admission. Most likely from dehydration and pyelonephritis. * Continue gentle hydration * repeat BEP in the a.m. to monitor renal function * Hold hydrochlorothiazide and losartan for DUSTIN Hyponatremia Sodium 129 at the time of admission most likely hypovolemic hyponatremia. * Monitor sodium, currently trending up Hx of Diabetes * Novolog SS * Accuchecks Diet: Diabetic DVT prophylaxis subcutaneous heparin Code: FULL Problem List: 1. Pyelonephritis Pain Ratin Pain Location: NA Pain Goal: Remain pain free Pain Plan: NA Tomorrow's Labs & Rationales: CBC for white ct BEP for hyponatremia
--- NOTE | 2017-09-05 11:22 | PN- Infect Dx ---
Subjective Subjective: No fever; feeling better. Good appetite. No n/v/diarrhea. Review of Systems Comments: 12 points reviewed as noted, otherwise negative. Objective Last 24 Hrs of Vital Signs/I&O Vital Signs Date Time Temp Pulse Resp B/P B/P Pulse O2 O2 Flow FiO2 Mean Ox Delivery Rate 09/05 0600 98.5 91 18 158/76 96 09/05 0534 97 Room Air 09/04 1331 98.5 88 20 118/80 95 Room Air 09/04 1331 93 Room Air Room Air Intake & Output 09/05 1600 09/05 0800 09/05 0000 Intake Total 100 300 Output Total Balance 100 300 Intake, IV 100 Intake, Oral 100 200 Number 1 Bowel Movements Physical Exam Other Physical Findings: She appears well in no acute distress Lungs are clear Heart regular rhythm with no murmur Abdomen is soft, tender on palpation over the right upper quadrant, epigastrium and, to a lesser extent, the left upper quadrant Back mild left CVA tenderness Extremities no cyanosis, clubbing or edema Results Last 24 Hours of Lab Results: Laboratory Tests 09/05 09/04 0620 1910 Chemistry Sodium (137 - 145 mmol/L) 134 L Potassium (3.5 - 5.1 mmol/L) 4.2 Chloride (98 - 107 mmol/L) 101 Carbon Dioxide (22 - 30 mmol/L) 26 Anion Gap (5 - 16) 7 BUN (7 - 17 mg/dL) 13 Creatinine (0.5 - 1.0 mg/dL) 1.1 H Estimated GFR (>60 ml/min) 49 L BUN/Creatinine Ratio (7 - 25 %) 11.8 Serum Osmolality (285 - 295 MOSM/KG) 284 L Hematology CBC w Diff NO MAN DIFF REQ WBC (4.8 - 10.8 /CUMM) 8.2 RBC (4.20 - 5.40 /CUMM) 3.59 L Hgb (12.0 - 16.0 G/DL) 8.6 L Hct (37 - 47 %) 26.6 L MCV (81.0 - 99.0 FL) 74.1 L MCH (27.0 - 31.0 PG) 23.9 L MCHC (33.0 - 37.0 G/DL) 32.3 L RDW (11.5 - 14.5 %) 17.7 H Plt Count (130 - 400 /CUMM) 230 MPV (7.4 - 10.4 FL) 10.5 H Gran % (42.2 - 75.2 %) 56.5 Lymphocytes % (20.5 - 51.1 %) 28.9 Monocytes % (1.7 - 9.3 %) 13.6 H Eosinophils % (0 - 5 %) 0.5 Basophils % (0.0 - 2.0 %) 0.5 Absolute Granulocytes (1.4 - 6.5 /CUMM) 4.6 Absolute Lymphocytes (1.2 - 3.4 /CUMM) 2.4 Absolute Monocytes (0.10 - 0.60 /CUMM) 1.1 H Absolute Eosinophils (0.0 - 0.7 /CUMM) 0 Absolute Basophils (0.0 - 0.2 /CUMM) 0 Last 24 Hours of Khalif Results: SPEC #: [id number] AJIT: 09/02/17 STATUS: COMP RECD: 09/02/17-[address]: Cain Purcell SOURCE: BLOOD ENTR: 09/02/17-[address] ORDERED: BLOOD CULTURE Procedure Result > BLOOD CULTURE REPORT Final 09/05/17 GRAM STAIN SUGGESTIVE OF: GRAM NEGATIVE RODS Called to/Readback by EUN by [email or web address] 09/03/17 0650 ESCHERICHIA COLI 1. ESCHERICHIA COLI RX AB ------ -- AMPICILLIN R CEFAZOLIN S AMOXICILLIN/CLAVULINIC ACID S AMPICILLIN/SULBACTAM R CIPROFLOXACIN S GENTAMICIN S TRIMETHOPRIM/SULFAMETHOXAZOLE R Recent Imaging Studies: CT A/P IMPRESSION: 1. No evidence of pneumonia. 2. Calcified lung nodules and calcified left hilar lymph node suggests prior granulomatous disease exposure. 3. No evidence of radiopaque gallstones. No CT evidence of acute cholecystitis. 4. Normal appendix. 5. Stable punctate nonobstructing right renal calcification. Mild bilateral perinephric stranding is nonspecific however new compared to previous CT and findings can be seen in the setting of pyelonephritis. No hydroureteronephrosis. DICTATED BY: Christian ELLIS,Anal DATE/TIME DICTATED:09/02/171403 DINING ROOM SUPERVISOR:LAWSON DATE/TIME TRANSCRIBED:09/02/171403 Assessment/Plan ID Impression: 72 yo f with a past medical history significant for hypertension, hyperlipidemia , diabetes mellitus, hypothyroidism, GERD, recent stent placement right lower extremity who presents with fever, chills, weakness on 07/02. Afebrile while treated w/ Ceftriaxone Day #3 of for presumed sepsis of urologic origin, with Escherichia coli sensitive to Ceftriaxone isolated from the urine culture and with blood cultures. Suggestion: 1. Follow-up repeat blood cultures from 09/04 (pnd) 2. Continue Ceftriaxone pending above. 3. Monitor CBC, BMP. 4. Call if spiking fever.
[2017-09-05 13:30] VITALS: BP 152/74
[2017-09-05 23:00] VITALS: BP 142/88
[2017-09-06 07:00] VITALS: BP 138/80
[2017-09-06 07:40] LABS: ABSOLUTE BASOPHIL COUNT 0.1 /CUMM (0.0-0.2); ABSOLUTE EOSINOPHIL COUNT 0.1 /CUMM (0.0-0.7); ABSOLUTE LYMPH COUNT 2.1 /CUMM (1.2-3.4); BASOPHIL % 0.7 % (0.0-2.0); EOSINOPHIL % 1.7 % (0-5); GRANULOCYTE % 59.9 % (42.2-75.2); HEMATOCRIT 26.1 % (37-47); MEAN CORPUSCULAR HGB CONC 32.8 G/DL (33.0-37.0); MEAN CORPUSCULAR VOLUME 73.1 FL (81.0-99.0); MEAN PLATELET VOLUME 9.9 FL (7.4-10.4); PLATELET COUNT 266 /CUMM (130-400); RBC DISTRIBUTION WIDTH 17.4 % (11.5-14.5); RED BLOOD CELL CT 3.58 /CUMM (4.20-5.40); WHITE BLOOD CELL COUNT 8.3 /CUMM (4.8-10.8)
--- NOTE | 2017-09-06 08:54 | PN- Housestaff ---
Subjective Follow-up For: Sepsis of urologic origin/Acute pyelonephritis Tele-Events Since Last Visit: Normal sinus rhythm Heart rate 71-80. Subjective: Patient complains of new onset left lower extremity swelling and pain in her left great toe and thumb. Denies any fever/chills, urinary frequency/urgency, pain or burning with urination or abdominal pain. Review of Systems Constitutional: Reports: no symptoms. EENTM: Reports: no symptoms. Cardiovascular: Reports: peripheral edema. Respiratory: Reports: no symptoms. Gastrointestinal: Reports: no symptoms. Genitourinary: Reports: no symptoms. Musculoskeletal: Reports: joint pain, joint swelling. Skin: Reports: no symptoms. Neurological/Psychological: Reports: no symptoms. Hematologic/Endocrine: Reports: no symptoms. Immunologic/Allergic: Reports: no symptoms. Objective Last 24 Hrs of Vital Signs/I&O Vital Signs Date Time Temp Pulse Resp B/P B/P Pulse O2 O2 Flow FiO2 Mean Ox Delivery Rate 09/06 0700 98.7 75 20 138/80 98 09/05 2300 99.2 77 18 142/88 98 Intake & Output 09/06 1600 09/06 0800 09/06 0000 Intake Total 460 560 Output Total 500 Balance -40 560 Intake, IV 10 420 Intake, Oral 450 140 Output, Urine 500 Physical Exam General Appearance: Alert, Oriented X3, Cooperative Skin: No Rashes, No Breakdown Cardiovascular: Regular Rate, Normal S1, Normal S2 Lungs: Clear to Auscultation, Normal Air Movement Abdomen: Normal Bowel Sounds, Soft, No Tenderness Extremities: No Clubbing, No Cyanosis, +1 PITTING EDEMA ON THE LEFT LOWER EXTREMITY Current Medications: Current Medications Sig/Wesley Start time Last Medication Dose Route Stop Time Status Admin Acetaminophen 650 MG Q6P PRN 09/02 1830 DCD 09/03 PO 1819 Acetaminophen 1,000 MG Q6P PRN 09/02 1830 DCD 09/04 IV 0643 Albuterol Sulfate 3 ML Q6 PRN 09/02 1900 DCD 09/05 INH 0527 Ceftriaxone Sodium 1,000 MG 1600 09/03 1730 DCD 09/05 IV 1633 Docusate Sodium 100 MG DAILY 09/04 2109 DCD 09/06 PO 0901 Gabapentin 300 MG TID 09/02 1848 DCD 09/06 PO 0901 Heparin Sodium 5,000 UNIT Q8 09/02 2200 DCD 09/06 (Porcine) SC 1210 Insulin Aspart 0 TIDAC 09/03 0800 DCD 09/06 SC 1211 Levothyroxine Sodium 0.025 MG DAILY AC 09/02 1848 DCD 09/06 PO 0530 Montelukast Sodium 10 MG DAILY 09/02 1849 DCD 09/06 PO 0901 Omeprazole 40 MG DAILY AC 09/02 1849 DCD 09/06 PO 0530 Senna 187 MG AT BEDTIME 09/04 2199 DCD 09/05 PO 2052 Sodium Chloride 1,000 ML Q20H 09/04 0745 DC 09/05 IV 09/05 2344 0507 Tiotropium [place] 1 PUF DAILY 09/02 1851 DCD 09/06 INH 1210 Last 24 Hrs of Lab/Khalif Results Last 24 Hrs of Labs/Mics: Laboratory Tests 09/06/17 0645: Anion Gap 9, Estimated GFR 54 L, BUN/Creatinine Ratio 10.0, Uric Acid 4.6, CBC w Diff NO MAN DIFF REQ, RBC 3.58 L, MCV 73.1 L, MCH 24.0 L, MCHC 32.8 L, RDW 17.4 H, MPV 9.9, Gran % 59.9, Lymphocytes % 25.2, Monocytes % 12.5 H, Eosinophils % 1.7, Basophils % 0.7, Absolute Granulocytes 5.0, Absolute Lymphocytes 2.1, Absolute Monocytes 1.0 H, Absolute Eosinophils 0.1, Absolute Basophils 0.1 Assessment/Plan Assessment: Assessment: Ms Cavazos is a 72 yo f with a past medical history significant for hypertension, hyperlipidemia, diabetes mellitus, hypothyroidism, GERD, recent stent placement right lower extremity admitted with flank pain, fever, chills Acute Pyelonephritis/Sepsis of Urologic origin CT ABD/PEL showed perinephric stranding and patient reported a fever, chills and flank pain most consistent with an acute complicated UTI. * Discontinue ceftriaxone, start patient on ciprofloxacin 500 mg twice a day for 7 more days to complete a 10 day course of antibiotics. * Urology recommendations appreciated * ID recommendations appreciated * UC sensitive to Ceftriaxone and ciprofloxacin Left lower extremity edema and left great toe pain * Doppler ultrasound was negative for any DVT. * Uric acid level was 4.6. Acute kidney injury Patient was found to have creatinine 1.20 the time of admission. Most likely from dehydration and pyelonephritis. * Continue gentle hydration * Repeat creatinine this a.m. is 1.0 * Hydrochlorothiazide was discontinued and and losartan was found at the time of discharge. Hyponatremia Sodium 129 at the time of admission most likely hypovolemic hyponatremia. * Monitor sodium, currently trending up. * Sodium level 136 today Hx of Diabetes * Novolog SS * Accuchecks Diet: Diabetic DVT prophylaxis subcutaneous heparin Problem List: 1. Pyelonephritis Pain Ratin Pain Location: Left Great Toe Pain Goal: Remain pain free Pain Plan: Pain pathway Tomorrow's Labs & Rationales: None
--- NOTE | 2017-09-06 10:02 | PN- Pulmonary ---
Subjective HPI/Critical Care Issues: Much improved Has mild ankle pain rt side Ros neg Objective Current Medications: Current Medications Sig/[place] Start time Last Medication Dose Route Stop Time Status Admin Acetaminophen 650 MG Q6P PRN 09/02 1830 AC 09/03 PO 1819 Acetaminophen 1,000 MG Q6P PRN 09/02 1830 AC 09/04 IV 0643 Albuterol Sulfate 3 ML Q6 PRN 09/02 1900 AC 09/05 INH 0527 Ceftriaxone Sodium 1,000 MG 1600 09/03 1730 AC 09/05 IV 1633 Docusate Sodium 100 MG DAILY 09/04 2109 AC 09/06 PO 0901 Gabapentin 300 MG TID 09/02 184 AC 09/06 PO 0901 Heparin Sodium 5,000 UNIT Q8 09/02 2200 AC 09/06 (Porcine) SC 0530 Insulin Aspart 0 TIDAC 09/03 0800 AC 09/05 SC 1724 Levothyroxine Sodium 0.025 MG DAILY AC 09/02 1848 AC 09/06 PO 0530 Montelukast Sodium 10 MG DAILY 09/02 184 AC 09/06 PO 0901 Omeprazole 40 MG DAILY AC 09/02 1849 AC 09/06 PO 0530 Senna 187 MG AT BEDTIME 09/04 2200 AC 09/05 PO 2052 Sodium Chloride 1,000 ML Q20H 09/04 0745 DC 09/05 IV 09/05 2344 0507 Tiotropium [place] 1 PUF DAILY 09/02 1851 09/05 INH 0932 Vital Signs & I&O Last 24 Hrs of Vitals and I&O: Vital Signs Date Time Temp Pulse Resp B/P B/P Pulse O2 O2 Flow FiO2 Mean Ox Delivery Rate 09/06 07 98.7 75 20 138/80 98 09/05 2300 99.2 77 18 142/88 98 09/05 1341 97 Room Air Intake & Output 09/06 1600 09/06 0800 09/06 0000 Intake Total 560 Output Total Balance 560 Intake, IV 420 Intake, Oral 140 Laboratory Tests 09/06 09/05 0645 0620 Chemistry Sodium (137 - 145 mmol/L) 136 L 134 L Potassium (3.5 - 5.1 mmol/L) 4.2 4.2 Chloride (98 - 107 mmol/L) 101 101 Carbon Dioxide (22 - 30 mmol/L) 26 26 Anion Gap (5 - 16) 9 7 BUN (7 - 17 mg/dL) 10 13 Creatinine (0.5 - 1.0 mg/dL) 1.0 1.1 H Estimated GFR (>60 ml/min) 54 L 49 L BUN/Creatinine Ratio (7 - 25 %) 10.0 11.8 Hematology CBC w Diff NO MAN DIFF REQ NO MAN DIFF REQ WBC (4.8 - 10.8 /CUMM) 8.3 8.2 RBC (4.20 - 5.40 /CUMM) 3.58 L 3.59 L Hgb (12.0 - 16.0 G/DL) 8.6 L 8.6 L Hct (37 - 47 %) 26.1 L 26.6 L MCV (81.0 - 99.0 FL) 73.1 L 74.1 L MCH (27.0 - 31.0 PG) 24.0 L 23.9 L MCHC (33.0 - 37.0 G/DL) 32.8 L 32.3 L RDW (11.5 - 14.5 %) 17.4 H 17.7 H Plt Count (130 - 400 /CUMM) 266 230 MPV (7.4 - 10.4 FL) 9.9 10.5 H Gran % (42.2 - 75.2 %) 59.9 56.5 Lymphocytes % (20.5 - 51.1 %) 25.2 28.9 Monocytes % (1.7 - 9.3 %) 12.5 H 13.6 H Eosinophils % (0 - 5 %) 1.7 0.5 Basophils % (0.0 - 2.0 %) 0.7 0.5 Absolute Granulocytes (1.4 - 6.5 /CUMM) 5.0 4.6 Absolute Lymphocytes (1.2 - 3.4 /CUMM) 2.1 2.4 Absolute Monocytes (0.10 - 0.60 /CUMM) 1.0 H 1.1 H Absolute Eosinophils (0.0 - 0.7 /CUMM) 0.1 0 Absolute Basophils (0.0 - 0.2 /CUMM) 0.1 0 09/04 1909 Chemistry Serum Osmolality (285 - 295 MOSM/KG) 284 L Microbiology Date/Time Procedure - Status Source Growth 09/04 0750 Blood Culture - RES BLOOD 09/04 0716 Blood Culture - RES BLOOD Impression/Plan Impression/Plan Impression/Plan: General Appearance: Alert, Oriented X3, Cooperative, No Acute Distress Cardiovascular: Regular Rate, Normal S1, Normal S2 Lungs: Clear to Auscultation, Normal Air Movement Abdomen: Normal Bowel Sounds, Soft, No Tenderness Extremities: No Edema rt ankle mild chroinc swelling non tender with skin scratch IMPRESSION 72 yo f with a past medical history significant for hypertension, hyperlipidemia , diabetes mellitus, hypothyroidism, GERD, recent stent placement right lower extremity who presents with fever, chills, weakness on 07/02. Issues Ecoli Sepis of urological origin DUSTIN resolved Hyponatremia resolving DM Hypothyroid on supp PVD with recent stent mild swelling appears chronic of lt ankle REC COnt IV abx, prob can be changed to po cipro- ask ID Resume losartan and dc hctz Check uric acid Sugar mgt ID eval noted PT eval If stable ok to dc
--- NOTE | 2017-09-06 11:20 | PN- Infect Dx ---
Subjective Subjective: No fever; much improved; no ur sx. Review of Systems Comments: 12 points reviewed as noted, otherwise negative. Objective Last 24 Hrs of Vital Signs/I&O Vital Signs Date Time Temp Pulse Resp B/P B/P Pulse O2 O2 Flow FiO2 Mean Ox Delivery Rate 09/06 0700 98.7 75 20 138/80 98 09/05 2300 99.2 77 18 142/88 98 09/05 1341 97 Room Air Intake & Output 09/06 1600 09/06 0800 09/06 0000 Intake Total 560 Output Total Balance 560 Intake, IV 420 Intake, Oral 140 Physical Exam Other Physical Findings: She appears well in no acute distress Lungs are clear Heart regular rhythm with no murmur Abdomen is soft, tender on palpation over the right upper quadrant, epigastrium and, to a lesser extent, the left upper quadrant Back mild left CVA tenderness Extremities no cyanosis, clubbing or edema Results Last 24 Hours of Lab Results: Laboratory Tests 09/06 0645 Chemistry Sodium (137 - 145 mmol/L) 136 L Potassium (3.5 - 5.1 mmol/L) 4.2 Chloride (98 - 107 mmol/L) 101 Carbon Dioxide (22 - 30 mmol/L) 26 Anion Gap (5 - 16) 9 BUN (7 - 17 mg/dL) 10 Creatinine (0.5 - 1.0 mg/dL) 1.0 Estimated GFR (>60 ml/min) 54 L BUN/Creatinine Ratio (7 - 25 %) 10.0 Hematology CBC w Diff NO MAN DIFF REQ WBC (4.8 - 10.8 /CUMM) 8.3 RBC (4.20 - 5.40 /CUMM) 3.58 L Hgb (12.0 - 16.0 G/DL) 8.6 L Hct (37 - 47 %) 26.1 L MCV (81.0 - 99.0 FL) 73.1 L MCH (27.0 - 31.0 PG) 24.0 L MCHC (33.0 - 37.0 G/DL) 32.8 L RDW (11.5 - 14.5 %) 17.4 H Plt Count (130 - 400 /CUMM) 266 MPV (7.4 - 10.4 FL) 9.9 Gran % (42.2 - 75.2 %) 59.9 Lymphocytes % (20.5 - 51.1 %) 25.2 Monocytes % (1.7 - 9.3 %) 12.5 H Eosinophils % (0 - 5 %) 1.7 Basophils % (0.0 - 2.0 %) 0.7 Absolute Granulocytes (1.4 - 6.5 /CUMM) 5.0 Absolute Lymphocytes (1.2 - 3.4 /CUMM) 2.1 Absolute Monocytes (0.10 - 0.60 /CUMM) 1.0 H Absolute Eosinophils (0.0 - 0.7 /CUMM) 0.1 Absolute Basophils (0.0 - 0.2 /CUMM) 0.1 Last 24 Hours of [place] Results: SPEC #: [id number] AJIT: 09/02/17 STATUS: COMP RECD: 09/02/[address]: Cain Purcell SOURCE: URINE ROUT ENTR: 09/02/[address]: Andrea ELLIS, Jake SPDESC: URIN CLEAN ORDERED: URINE CULTURE COMMENT: UC ADDED AT 1536 PER TAMIA Procedure Result > URINE CULTURE Final 09/04/17 Greater than 100,000 colonies per ml of: ESCHERICHIA COLI * This is a corrected result. * A prior result that was reported as final has been changed. 1. ESCHERICHIA COLI RX AB ------ -- AMPICILLIN R CEFAZOLIN S AMOXICILLIN/CLAVULINIC ACID S AMPICILLIN/SULBACTAM R CEFTRIAXONE S CIPROFLOXACIN S GENTAMICIN S NITROFURANTOIN S TRIMETHOPRIM/SULFAMETHOXAZOLE R Note: Infectious Diseases Society of [place] Guidelines state that asymptomatic bacteriuria is not associated with any increase in morbidity or mortality in most patients and therefore treatment is Recent Imaging Studies: reviewed Assessment/Plan ID Impression: 72 yo f with a past medical history significant for hypertension, hyperlipidemia , diabetes mellitus, hypothyroidism, GERD, recent stent placement right lower extremity who presents with fever, chills, weakness on 07/02. Afebrile while treated w/ Ceftriaxone Day #4 of for presumed sepsis of urologic origin, with Escherichia coli sensitive to Ceftriaxone isolated from the urine culture and with blood cultures. Suggestion: Suggestion: 1. D/c CTX once ready for discharge; cipro 500 mg po bid in order to complete 10 d treatment. 2. F/U PCP as OP in 48 h from discharge; EKG to f/u QT interval.. 3. Monitor for side effects to abx (diarrhea, increased confusion, prolonged QT) .
--- NOTE | 2017-09-06 12:38 | ULTRASOUND REPORT ---
EXAMINATION: US TRIPLEX LOWER EXTREMITY, LEFT CLINICAL INFORMATION: Left leg tenderness and edema COMPARISON: None TECHNIQUE: Color-flow triplex imaging with spectral analysis and compression Doppler were performed on the lower extremity. FINDINGS: Respiratory variation, normal compression and augmented flow are noted throughout the lower extremity. The visualized common femoral vein, superficial femoral vein, profunda femoral vein, popliteal vein and midcalf peroneal and posterior tibial venous segments show no evidence of deep venous thrombosis. There is no Riddle's cyst. No popliteal artery aneurysm. IMPRESSION: Normal triplex scan without evidence of acute deep venous thrombosis involving the lower extremity.
[2017-09-06] MEDS ORDERED: CIPRO500 M1 PO ×2 (13:04→13:15)
--- NOTE | 2017-09-06 13:08 | Patient Discharge Instructions ---
Discharge Instructions General Discharge Information You were seen/treated for: Sepsis secondary to pyelonephritis Watch for these problems: Please return to the ER in case of any increased urinary frequency, urgency, pain or burning with urination, abdominal pain or fever/chills. Special Instructions: Please follow-up with your PCP within a week after discharge. Please follow-up with the urologist within a week after discharge. Please take all your medications as directed including antibiotics. Diet Continue normal diet: Yes Activity Full Activity/No Limits: Yes Acute Coronary Syndrome Inclusion Criteria At DC or during hospital stay patient has or had the following: ACS DIAGNOSIS No Discharge Core Measures Meds if any: Prescribed or Continued at Discharge Meds if any: NOT Prescribed or Continued at Discharge Congestive Heart Failure Inclusion Criteria At DC or during hospital stay patient has or had the following: CHF DIAGNOSIS No Discharge Core Measures Meds if any: Prescribed or Continued at Discharge Meds if any: NOT Prescribed or Continued at Discharge Cerebrovascular accident Inclusion Criteria At DC or during hospital stay patient has or had the following: CVA/TIA Diagnosis No Discharge Core Measures Meds if any: Prescribed or Continued at Discharge Meds if any: NOT Prescribed or Continued at Discharge Venous thromboembolism Inclusion Criteria VTE Diagnosis No VTE Type NONE VTE Confirmed by (Test) DUPLEX SCAN LOWER EXT Discharge Core Measures - Per Current guidelines, there needs to be overlap - treatment for the first 5 days of Warfarin therapy. - If discharged on Warfarin prior to 5 days of - overlap therapy, the patient will need to be - assessed for post discharge needs including - *Post discharge parental anticoagulation - *Warfarin and/or parental anticoagulation education - *Follow up date to check INR post discharge At least 5 days overlap therapy as Inpatient No Meds if any: Prescribed or Continued at Discharge Note: Overlap Therapy is Warfarin and Anticoagulant Meds if any: NOT Prescribed or Continued at Discharge
== END 2017-09-06 14:45 | disposition home health service (06) | DRG 872 ==
LOC: ERH 11:22 → ERHI 16:13 → 1NO 16:13 → ERHI 22:50 → ENRESERV 09-03 14:16 → ENTRNSPT 09-03 14:57 → EDTRNSPT 09-03 15:00 → EDTRNSPTSTS 09-03 15:00 → 1NO 09-03 15:03 → CMPTRNSPT 09-03 15:20 → ENTRNSPT 09-06 14:37 → ENPENDDIS 09-06 14:37 → EDTRNSPTSTS 09-06 14:39 → 1NO 09-06 14:45 → CMPTRNSPT 09-06 14:48
PROVIDERS: Hospitalist; Physician Assistant Medical; Student in an Organized Health Care Education/Training Program
DX: A41.51 Sepsis due to Escherichia coli [E. coli] (principal); N17.9 Acute kidney failure, unspecified; E11.8 Type 2 diabetes mellitus with unspecified complications; E11.22 Type 2 diabetes mellitus with diabetic chronic kidney disease; E87.1 Hypo-osmolality and hyponatremia; N10 Acute pyelonephritis; E86.0 Dehydration; R07.9 Chest pain, unspecified; N20.0 Calculus of kidney; B96.20 Unspecified Escherichia coli [E. coli] as the cause of diseases classified elsewhere; E78.5 Hyperlipidemia, unspecified; K21.9 Gastro-esophageal reflux disease without esophagitis; E03.9 Hypothyroidism, unspecified; Z79.84 Long term (current) use of oral hypoglycemic drugs; Z95.828 Presence of other vascular implants and grafts; J45.909 Unspecified asthma, uncomplicated; I12.9 Hypertensive chronic kidney disease with stage 1 through stage 4 chronic kidney disease, or unspecified chronic kidney disease; N18.9 Chronic kidney disease, unspecified; D50.9 Iron deficiency anemia, unspecified; Z91.81 History of falling; W18.30XA Fall on same level, unspecified, initial encounter; R10.9 Unspecified abdominal pain; M25.571 Pain in right ankle and joints of right foot; I73.9 Peripheral vascular disease, unspecified
CPT/HCPCS: 1NP; 84133; 84300; ERO; 36415; 36592; 74176; 81001; 82436; 82570; 87040; 87086; 87804; 87804-59; 93005; 93010; 96374; 96375; 97110-GO; 97116-GO; 97161-GP; J0131; J0696; J1644; J2930

== ENCOUNTER → 2017-09-29 | Day surgery (SDC) | payer OTHER ==
[~2017-09-29] MED LIST changes: +CIPRO500 M1 PO; +DULERA 200 MCG/13 GM INH; +GABAPENTIN300 M2 PO; +GLIPIZIDE5 M2 PO; +HYDROCHLOROTHIA25 M1 PO; +JANUMET 50-1,01 EACH PO; +LEVOTHYROXINE25 MCG PO; +LOSARTAN POTAS100 M1 PO; +MELOXICAM15 M1 PO; +MONTELUKAST SOD10 M1 PO; +OMEPRAZOLE40 M1 PO; +PROAIR HFA8.5 GM INH; +SIMVASTATIN20 M2 PO; +[UNRECOGNIZED DRUG - OTHER] PO
--- NOTE | 2017-09-29 14:09 | Operative Report ---
Operative/Inv Procedure Report Surgery Date: 09/29/17 Name of Procedure: right renal ESWL, cystoscopy-LEFT stent removal Pre-Operative Diagnosis: right stone: left stent Post-Operative Diagnosis: same Estimated Blood Loss: scant Surgeon/Bag Machine Operator: Ugo Finney MD Anesthesia: moderate sedation Specimens: left stent Complications: none Operative/Procedure Note Note: The patient was taken to the operating room placed on the OR table in supine position. Timeout was performed, with the patient awake, in order to confirm correct procedure, laterality, anesthesia, and other pertinent perioperative information. After adequate anesthesia and antibiotics, the patient was then positioned over the ESWL table cutout overlying the treatment dome. Fluoroscopy, using AP and oblique views, as well as renal ultrasound, or performed in order to locate the stone. The position of the RIGHT renal stone was optimized, and positioned in the middle of the ESWL crosshairs. The stone was measured to be approximately 6 mm in size. ESWL was initiated at low power, and after 200 shockwaves delivered , noting the patient's tolerance to the shockwaves, the power was increased to maximum. At the end of 2500 shockwaves, fluoroscopy confirms the change in consistency of the stone, indicating shattering of the stone. The patient was then frog legged, draped and prepped in the usual surgical fashion. 22 Thai cystoscope sheath with 30 angle lens was inserted without difficulty. Upon entering the bladder, the bladder was noted to be free of tumor free of stone. The left orifice was intubated with a double J stent, which was grasped with alligator forceps. The cystoscope along with entire stent was removed without difficulty. All sponge needle and instrument count were correct at the end of the case. The patient tolerated the procedures well, and was taken to the recovery room in satisfactory condition. The patient is discharged home with pain medication, and follow-up instructions with in 2-3 weeks' time. Discharge Disposition: Same Day Admissions CC: Ugo Finney MD
== END ==
LOC: STS 01:56
DX: N20.0 Calculus of kidney (principal); I10 Essential (primary) hypertension; E11.9 Type 2 diabetes mellitus without complications; Z79.84 Long term (current) use of oral hypoglycemic drugs; E78.00 Pure hypercholesterolemia, unspecified; Z79.82 Long term (current) use of aspirin